=== PATIENT | male | born 1935 | race Caucasian/White ===

== ENCOUNTER → 2016-08-19 | Outpatient (CLI) | payer MEDICARE, OTHER ==
[~2016-08-19] MED LIST: ACCUPRIL40MGTAB PO; APRESOLINE 25MG25 MG PO; ASPIRIN 81M81 MG/TA2 PO; CATAPRES 0.1MG0.1 MG PO; COLACE 100100 MG/CAP PO; FOSAMAX 10M10 MG/TAB PO; GLUCOTROL5 MG PO; HCTZ12.5TAB PO; LEVOTHROID0.125 MG PO; NORCO 325 MG-51 TAB PO; NORVASC10 MG PO; PROSCAR 5MG5 MG PO; PYRIDIUM 100MG100 MG PO; TIROSINT88 MC1; ZOCOR 20MG20 MG PO
== END ==
LOC: COL.LAB 08:45
DX: Z53.9 Procedure and treatment not carried out, unspecified reason (principal)

== ENCOUNTER → 2016-08-22 | Outpatient (CLI) | payer MEDICARE, OTHER ==
[2016-08-22 18:51] LABS: URINE 24 HOUR CREATININE 1.4 gm/24 hr (1.0-2.0)
== END ==
LOC: COL.LAB 16:11
DX: E11.29 Type 2 diabetes mellitus with other diabetic kidney complication (principal); R80.8 Other proteinuria

== ENCOUNTER 2017-01-09 10:55 | Emergency (ER) | payer MEDICARE, OTHER ==
[~2017-01-09] VITALS: Ht 172.7 cm; Wt 95.5 kg
[~2017-01-09 10:55] MED LIST changes: -APRESOLINE 25MG25 MG PO
[2017-01-09 11:01] VITALS: TEMP 97.7
[2017-01-09] MEDS ORDERED: ZOCOR 20MG20 MG PO (11:55)
[2017-01-09] MEDS ORDERED: APRESOLINE 25MG25 MG PO (11:56)
[2017-01-09] MEDS ORDERED: NORCO 325 MG-51 TAB PO (12:14)
[2017-01-09 13:05] VITALS: BP 168/79; PULSE 64
[2017-01-09 13:19] LABS: PH 5 (5-8); SQUAMOUS EPITHELIAL 0-2 /hpf; URINE APPEARANCE Hazy; URINE BACTERIA None Seen /hpf; URINE BILIRUBIN Negative (NEGATIVE); URINE BLOOD Negative (NEGATIVE); URINE GLUCOSE Negative (NEGATIVE); URINE KETONE Negative (NEGATIVE); URINE RBC 0-2 /hpf; URINE UROBILINOGEN Negative (NEGATIVE); URINE WBC 0-2 /hpf
[2017-01-09 13:26] LABS: URINE COLOR Yellow
== END 2017-01-09 13:45 | disposition home or self-care (01) ==
LOC: COL.ER 10:55
PROVIDERS: Emergency Medicine
DX: S39.012A Strain of muscle, fascia and tendon of lower back, initial encounter (principal); S86.912A Strain of unspecified muscle(s) and tendon(s) at lower leg level, left leg, initial encounter; S20.212A Contusion of left front wall of thorax, initial encounter; S51.812A Laceration without foreign body of left forearm, initial encounter; Z23 Encounter for immunization; W01.0XXA Fall on same level from slipping, tripping and stumbling without subsequent striking against object, initial encounter; Y92.000 Kitchen of unspecified non-institutional (private) residence as the place of occurrence of the external cause; I10 Essential (primary) hypertension; E11.9 Type 2 diabetes mellitus without complications; Z79.84 Long term (current) use of oral hypoglycemic drugs
CPT/HCPCS: A9284

== ENCOUNTER → 2017-01-14 | Outpatient (CLI) | payer MEDICARE, OTHER ==
[~2017-01-14] MED LIST changes: +APRESOLINE 25MG25 MG PO
== END ==
LOC: COL.CARD 11:36
DX: I45.2 Bifascicular block (principal); I10 Essential (primary) hypertension

== ENCOUNTER → 2017-01-28 | Outpatient (CLI) | payer MEDICARE, OTHER | LOC: COL.VAS 07:46 | DX: I36.1 Nonrheumatic tricuspid (valve) insufficiency (principal); I10 Essential (primary) hypertension ==

== ENCOUNTER → 2017-03-26 | Outpatient (CLI) | payer MEDICARE, OTHER | LOC: COL.PUL 09:51 | DX: R06.09 Other forms of dyspnea (principal); Z87.891 Personal history of nicotine dependence ==

== ENCOUNTER 2017-07-21 00:52 | Emergency (ER) | payer MEDICARE, OTHER ==
[~2017-07-21] VITALS: Ht 172.7 cm; Wt 97.7 kg
[2017-07-21 00:58] VITALS: TEMP 97.8
[2017-07-21] MEDS ORDERED: CEPHALEXIN500 M1 PO (02:22)
[2017-07-21 02:53] VITALS: BP 173/68; PULSE 65
== END 2017-07-21 02:53 | disposition home or self-care (01) ==
LOC: COL.ER 00:52
DX: S61.412A Laceration without foreign body of left hand, initial encounter (principal); S80.212A Abrasion, left knee, initial encounter; S90.412A Abrasion, left great toe, initial encounter; E11.9 Type 2 diabetes mellitus without complications; Z79.84 Long term (current) use of oral hypoglycemic drugs; Z79.82 Long term (current) use of aspirin; W18.39XA Other fall on same level, initial encounter; Y92.009 Unspecified place in unspecified non-institutional (private) residence as the place of occurrence of the external cause

== ENCOUNTER → 2017-12-14 | Outpatient (CLI) | payer MEDICARE, OTHER ==
[~2017-12-14] MED LIST changes: +CEPHALEXIN500 M1 PO
== END ==
LOC: COL.RAD 07:30
DX: H90.41 Sensorineural hearing loss, unilateral, right ear, with unrestricted hearing on the contralateral side (principal)

== ENCOUNTER → 2018-02-11 | Outpatient (CLI) | payer MEDICARE, OTHER ==
[~2018-02-11] MED LIST changes: +ADVAIR 250-50 DISKUS IH; +RT SPIRIVA18 MCG IH; +SYNTHROID0.1 MG/TAB PO
== END ==
LOC: COL.VAS 09:28
DX: I65.23 Occlusion and stenosis of bilateral carotid arteries (principal)

== ENCOUNTER 2018-02-17 05:11 | Day surgery (SDC) | payer MEDICARE, OTHER ==
[~2018-02-17] VITALS: Ht 172.7 cm; Wt 98.6 kg
[~2018-02-17 05:11] MED LIST changes: -ADVAIR 250-50 DISKUS IH; -RT SPIRIVA18 MCG IH; -SYNTHROID0.1 MG/TAB PO
[2018-02-17 06:18] LABS: CALCIUM 9.2 mg/dL (8.4-10.2); CREATININE, serum 1.66 mg/dL (0.66-1.25); POTASSIUM 4.5 mmol/L (3.4-5.0)
[2018-02-17 06:20] VITALS: BP 146/56; PULSE 77; TEMP 97.8
[2018-02-17] MEDS ORDERED: RT SPIRIVA18 MCG IH (06:30)
[2018-02-17] MEDS ORDERED: ADVAIR 250-50 DISKUS IH (06:30)
[2018-02-17] MEDS ORDERED: SYNTHROID0.1 MG/TAB PO (06:39)
[2018-02-17 08:54] VITALS: BP 150/57; PULSE 54
[2018-02-17] MEDS ORDERED: NORCO 325 MG-51 TAB PO (08:56)
[2018-02-17 09:09] VITALS: BP 156/50; PULSE 55
[2018-02-17 09:14] VITALS: BP 141/56; PULSE 53
[2018-02-17 09:29] VITALS: BP 171/47; PULSE 56
== END 2018-02-17 09:40 | disposition home or self-care (01) ==
LOC: SDCO 05:11
PROVIDERS: Nurse Anesthetist, Certified Registered
DX: G93.81 Temporal sclerosis (principal); H53.131 Sudden visual loss, right eye; I10 Essential (primary) hypertension; D64.9 Anemia, unspecified; J44.9 Chronic obstructive pulmonary disease, unspecified; M19.90 Unspecified osteoarthritis, unspecified site; E11.40 Type 2 diabetes mellitus with diabetic neuropathy, unspecified; I45.10 Unspecified right bundle-branch block; Z79.84 Long term (current) use of oral hypoglycemic drugs; Z79.82 Long term (current) use of aspirin; Z85.850 Personal history of malignant neoplasm of thyroid; Z87.891 Personal history of nicotine dependence; Z82.49 Family history of ischemic heart disease and other diseases of the circulatory system; Z83.3 Family history of diabetes mellitus
CPT/HCPCS: J0690; J2250; J2405; J2704; J3010; J7030

== ENCOUNTER → 2018-03-15 | Outpatient (CLI) | payer MEDICARE, OTHER ==
[~2018-03-15] MED LIST changes: +ADVAIR 250-50 DISKUS IH; +RT SPIRIVA18 MCG IH; +SYNTHROID0.1 MG/TAB PO
== END ==
LOC: COL.RAD 10:42
DX: J44.9 Chronic obstructive pulmonary disease, unspecified (principal); I51.7 Cardiomegaly; R63.5 Abnormal weight gain

== ENCOUNTER 2018-10-07 15:28 | Inpatient (IN) | payer MEDICARE, OTHER ==
[~2018-10-07] VITALS: Ht 172.7 cm; Wt 101.6 kg
[2018-10-07 16:44] LABS: BASO % 0.4 % (0.0-2.0); EOS # 0.3 (0.0-0.7); GRAN # 3.4 (1.4-6.5); GRAN % 65.5 % (42.2-75.2); LYMPH # 0.8 (1.2-3.4); LYMPH % 16.1 % (20.0-51.0); MEAN CELL VOLUME 101 fl (80.0-100.0); MEAN CORPUSCULAR HGB CONC 33 g/dl (33.0-37.0); MEAN PLATELET VOLUME 9.6 fl (7.4-10.4); MONO # 0.7 (0.1-0.6); MONO % 12.8 % (1.7-9.3); PLATELET COUNT 211 K/mm3 (130-400); REDCELL DISTRIBUTION WIDTH-CV 13.2 % (11.5-14.5)
[2018-10-07 16:49] LABS: HEMATOCRIT 29.4 % (42.0-52.0); HEMOGLOBIN 9.6 g/dl (13.5-18.0); MEAN CORPUSCULAR HEMOGLOBIN 33 pg (27.0-31.0)
[2018-10-07 16:56] LABS: ALANINE AMINOTRANSFERASE 12 U/L (21-72); ALBUMIN 3.5 gm/dL (3.5-5.0); ALKALINE PHOSPHATASE 52 U/L (50-136); ANION GAP 6 mmol/L (7-16); AST,SGOT 22 U/L (15-37); BILIRUBIN,TOTAL 0.3 mg/dL (0.0-1.0); BLOOD UREA NITROGEN 31 mg/dL (9-20); C-REACTIVE PROTEIN < 0.5 mg/dL (0.0-0.9); CALCIUM 8.7 mg/dL (8.4-10.2); CARBON DIOXIDE 24 mmol/L (22-30); CHLORIDE 108 mmol/L (98-107); CREATININE, serum 1.54 (0.66-1.25); GLUCOSE 180 mg/dL (74-106); POTASSIUM 5.3 mmol/L (3.4-5.0); SODIUM 138 mmol/L (137-145); TOTAL PROTEIN 6.6 gm/dL (6.4-8.2)
[2018-10-07 17:10] LABS: TROPONIN-I < 0.012 ng/mL (0.000-0.035)
[2018-10-07 17:30] VITALS: BP 169/56; PULSE 54
[2018-10-07] MEDS ORDERED: CATAPRES0.2 MG PO (18:44)
[2018-10-07] MEDS ORDERED: GLUCOTROL XL5 MG/TAB PO (18:46)
[2018-10-07] MEDS ORDERED: VOLTAREN GEL 1%1 TU TP (18:58)
[2018-10-07] MEDS ORDERED: VITAMIN D31000 I1 PO (18:58)
[2018-10-07] MEDS ORDERED: APRESOLINE 25MG25 MG PO (18:59)
[2018-10-07] MEDS ORDERED: ACCUPRIL40MGTAB PO (18:59)
[2018-10-07] MEDS ORDERED: LEVOXYL0.125 MG PO (18:59)
[2018-10-07] MEDS ORDERED: HCTZ 25MG TAB25 MG PO (18:59)
[2018-10-07] MEDS ORDERED: ASPIRIN 81M81 MG/TA2 PO (19:00)
[2018-10-07] MEDS ORDERED: ZOCOR 20MG20 MG (19:00)
[2018-10-07] MEDS ORDERED: OMEGA-3 1000 MG1 CAP PO (19:00)
[2018-10-07] MEDS ORDERED: MULTIPLE VITAMI1 CAP PO (19:01)
--- NOTE | 2018-10-07 19:42 | NUR ---
Pt to floor from ER via stretcher. No distress noted. Pt denies pain or nausea. Pt has no current reports of dizziness. Lungs clear to auscultation. BS+. Neuro check WNL. No needs noted. Will continue to monitor
[2018-10-07 19:47] VITALS: BP 158/42; PULSE 60; TEMP 97.5
--- NOTE | 2018-10-07 22:11 | NUR ---
Pt ambulated to bathroom with walker, gait belt and 1 assist. Well tolerated. Voiding clear, yellow urine. Pt denies dizziness.
[2018-10-08] VITALS (14 sets, daily range): BP systolic 129–188; BP diastolic 22–54; PULSE 45–99; TEMP 97.5–98.3
--- NOTE | 2018-10-08 00:45 | NUR ---
Orthostatic blood pressures meausred WNL. Maribel THAKKAR contacted. Pts home Blood pressure medications administered.
[2018-10-08 02:10] LABS: BASO % 0.5 % (0.0-2.0); EOS # 0.2 (0.0-0.7); EOS % 5.4 % (0-4.0); GRAN # 2.7 (1.4-6.5); GRAN % 61.5 % (42.2-75.2); LYMPH # 0.8 (1.2-3.4); MEAN CELL VOLUME 101 fl (80.0-100.0); MEAN CORPUSCULAR HGB CONC 33 g/dl (33.0-37.0); MONO # 0.6 (0.1-0.6); MONO % 13.4 % (1.7-9.3); PLATELET COUNT 182 K/mm3 (130-400); RED BLOOD COUNT 2.66 M/mm3 (4.20-5.60); REDCELL DISTRIBUTION WIDTH-CV 13.2 % (11.5-14.5)
[2018-10-08 02:13] LABS: HEMATOCRIT 26.9 % (42.0-52.0); HEMOGLOBIN 8.9 g/dl (13.5-18.0); MEAN CORPUSCULAR HEMOGLOBIN 33 pg (27.0-31.0)
[2018-10-08 02:19] LABS: ANION GAP 4 mmol/L (7-16); BLOOD UREA NITROGEN 25 mg/dL (9-20); CALCIUM 8.7 mg/dL (8.4-10.2); CARBON DIOXIDE 24 mmol/L (22-30); CHLORIDE 110 mmol/L (98-107); CREATININE, serum 1.35 (0.66-1.25); GLUCOSE 96 mg/dL (74-106); MAGNESIUM 2.1 mg/dL (1.6-2.3); POTASSIUM 4.6 mmol/L (3.4-5.0); SODIUM 138 mmol/L (137-145)
[2018-10-08 02:32] LABS: TROPONIN-I < 0.012 ng/mL (0.000-0.035)
--- NOTE | 2018-10-08 06:42 | NUR ---
Pt resting this Am. Up to the bathroom x4 last night. No distress noted. VSS. Pt denies any episodes of dizziness throughout the night.
--- NOTE | 2018-10-08 10:45 | NUR ---
Pt alert and oriented. Pt has IV patent and no infiltration noted. Pt denies pain. Pt dizzy with position changes. Orthosatics ordered. Pt am assessment completed and denies needs.
--- NOTE | 2018-10-08 11:51 | NUR ---
Visited, provided spiritual care, and prayed with the patient.
--- NOTE | 2018-10-08 19:22 | NUR ---
Pt alert and oriented. Pt does not have glasses or battery for his ear implant. Pt denies pain. Pt has been bradycardic this afternoon. Cardiology consulted and pacemaker planned for Wednesday. Pt denies symptoms at rest but unsteady gait and dizzy with ambulation. Pt has call light in reach and fall precautions in place.
[2018-10-09 01:03] VITALS: BP 138/33; PULSE 61; TEMP 97.9
--- NOTE | 2018-10-09 05:17 | NUR ---
PT WAS WOBBLY WITH STANDING AND AMBULATING TO BATHROOM THIS SHIFT. STEADY ON FEET AFTER STANDING AND TAKING A FEW STEPS. IV FLUIDS INFUSING WITHOUT ISSUE. NEUROS UNREMARKABLE. PT HAS NOTED COUGHING AND A LOT OF SOA WITH EXERTION. THIS NURSE CALLED NICCI THAKKAR AND OBTIANED ORDER FOR YVAN WYLIE PRN. ADMISNITERED MED. AMOUNT OF COUGHING DECRESED AFTERWARDS. NO C/O PAIN. HOB ELEVATED ABOUT 75 DEGREES. REMAINS ON RA, SATS GOT DOWN TO 92% WHEN IN A DEEP SLEEP THIS NOC OTHERWISE REMAINED IN UPPER 90'S. PT STATED HE WAS "REALLY WHEEZEY" NO NOTED WHEEZES HEARD ON ASSULTATION, PT WAS HAVING INCREASED WORK OF AIR AT THAT TIME.
[2018-10-09 06:07] VITALS: BP 142/33; PULSE 65; TEMP 98.2
[2018-10-09 09:58] LABS: CALCIUM 8.5 mg/dL (8.4-10.2); CREATININE, serum 1.98 (0.66-1.25); POTASSIUM 4.7 mmol/L (3.4-5.0)
[2018-10-09 10:02] LABS: BASO % 0.3 % (0.0-2.0); EOS # 0.3 (0.0-0.7); GRAN # 4.3 (1.4-6.5); GRAN % 68.5 % (42.2-75.2); LYMPH % 15.9 % (20.0-51.0); MEAN CELL VOLUME 102 fl (80.0-100.0); MEAN CORPUSCULAR HGB CONC 33 g/dl (33.0-37.0); MONO # 0.7 (0.1-0.6); MONO % 11.1 % (1.7-9.3); PLATELET COUNT 185 K/mm3 (130-400); RED BLOOD COUNT 2.49 M/mm3 (4.20-5.60); REDCELL DISTRIBUTION WIDTH-CV 13.4 % (11.5-14.5)
[2018-10-09 10:04] LABS: HEMATOCRIT 25.4 % (42.0-52.0); HEMOGLOBIN 8.3 g/dl (13.5-18.0); MEAN CORPUSCULAR HEMOGLOBIN 33 pg (27.0-31.0)
[2018-10-09 11:31] VITALS: BP 152/62; PULSE 53; TEMP 97.7
--- NOTE | 2018-10-09 11:36 | NUR ---
Pt stable this am. Pt alert and oriented. Pt denies SOB or pain. Pt ate 100% breakfast. Pt denies dizziness at rest but when rises he becomes dizzy. Pt only up with assistance. Pt on fall precautions. Pt has call light in reach and remains on telemetry. HR running in the 50-60's this am.
--- NOTE | 2018-10-09 12:34 | NUR ---
ALTAGRACIA met with the patient to discuss a discharge plan. The patient lives in [facility]. The patient has a cane and reports he uses it daily. The patient reports independence with ADLs. The patient receives medical care from the [facility]. The patient receives his medications via mail from the [facility] and he reports he also utilizes [facility], if needed. The patient does have advanced directives in the EMR. The patient plans to return home upon discharge. The patient reports his friend Mirela Zelaya may be able to take him home. If not, he will need assistance with transporation home. ALTAGRACIA will continue to follow. Mirela Burrell home
[2018-10-09 16:48] VITALS: BP 155/67; PULSE 57; TEMP 97.6
[2018-10-09 19:23] VITALS: BP 139/42; PULSE 65; TEMP 97.7
--- NOTE | 2018-10-09 19:28 | NUR ---
Pt stable this afternoon. Pt alert and oriented. Pt rates pain 2/10 in knees. Pt denies need for pain med. Pt repositioning for comfort. Pt ate 100%. Pt denies dizziness at rest. Pt has SOB and slight dizziness with ambulation with walker. Fall precautions in place. Pt consent obtain for pacemaker placement tomorrow. Pt NPO after midnight. Pt has call light in reach.
--- NOTE | 2018-10-09 19:45 | NUR ---
Shift assessment complete. Pt resting in bed, awake, a&o, cooperative c cares. Pt denies pain or any other c/o. INT patent. Tele in place. Pt denies needs. Reviewed plan for pacemaker in am including NPO at [place]. Call light in reach, will monitor.
[2018-10-09 23:35] VITALS: BP 151/39; PULSE 79; TEMP 97.6
[2018-10-10] VITALS (14 sets, daily range): BP systolic 120–186; BP diastolic 39–62; PULSE 59–77; TEMP 97.2–98.4
[2018-10-10 00:07] LABS: COLLECTION METHOD CLEAN CATCH
[2018-10-10 00:12] LABS: PH 6 (5-8); SQUAMOUS EPITHELIAL 0-2 /hpf; URINE APPEARANCE Clear; URINE BACTERIA None Seen /hpf; URINE BILIRUBIN Negative (NEGATIVE); URINE BLOOD Negative (NEGATIVE); URINE COLOR Yellow; URINE GLUCOSE Negative (NEGATIVE); URINE KETONE Negative (NEGATIVE); URINE LEUKOCYTE ESTERASE Negative (NEGATIVE); URINE NITRATE Negative (NEGATIVE); URINE PROTEIN(semi-quant) Negative (NEGATIVE); URINE RBC 0-2 /hpf; URINE UROBILINOGEN Negative (NEGATIVE)
[2018-10-10 07:38] LABS: BASO % 0.3 % (0.0-2.0); EOS # 0.4 (0.0-0.7); EOS % 5.1 % (0-4.0); GRAN # 5.3 (1.4-6.5); GRAN % 69.3 % (42.2-75.2); LYMPH # 1.2 (1.2-3.4); LYMPH % 15.5 % (20.0-51.0); MEAN CELL VOLUME 101 fl (80.0-100.0); MEAN CORPUSCULAR HGB CONC 33 g/dl (33.0-37.0); MEAN PLATELET VOLUME 9.8 fl (7.4-10.4); MONO # 0.7 (0.1-0.6); MONO % 9.5 % (1.7-9.3); PLATELET COUNT 221 K/mm3 (130-400); RED BLOOD COUNT 2.83 M/mm3 (4.20-5.60); REDCELL DISTRIBUTION WIDTH-CV 13.2 % (11.5-14.5)
[2018-10-10 07:39] LABS: HEMATOCRIT 28.5 % (42.0-52.0); HEMOGLOBIN 9.3 g/dl (13.5-18.0); MEAN CORPUSCULAR HEMOGLOBIN 33 pg (27.0-31.0)
[2018-10-10 07:48] LABS: CALCIUM 9.4 mg/dL (8.4-10.2); CREATININE, serum 1.65 (0.66-1.25); POTASSIUM 4.5 mmol/L (3.4-5.0)
--- NOTE | 2018-10-10 08:50 | NUR ---
ALL MEDICATIONS GIVEN WITH VERBAL ORDER AND READBACK WITH MD. SEE MERGE FOR ALL MEDICATION ADMIN TIMES. SEE MERGE FOR ALL RASS ASSESSMENTS DURING AND POST PROCEDURE.
--- NOTE | 2018-10-10 09:49 | NUR ---
Patient returned from supervisor laboratory after receiving pacemaker to left chest. Dressing is covered with sterile gauze and paper tape. There is swelling noted to site. Ice pack placed to site. Denies having any pain at this time. Rests quietly in bed with eyes closed.
--- NOTE | 2018-10-10 11:02 | NUR ---
Patient up to restroom at this time, up with minimal assistance. Reminders given to not use left arm. Patient understood. Requested to sit on toilet and stated he would pull the call light when he was finished. Did assist in ordering breakfast for patient.
--- NOTE | 2018-10-10 11:33 | NUR ---
Patient assisted up to restroom with 2 assist per his request. He stated he was nervous about getting up for the first time. Tolerated very well. Breakfast was ordered and given to patient. He was able to eat 100% and drank 240 mL. No other needs are verbalized. Call light is within reach.
--- NOTE | 2018-10-10 18:56 | NUR ---
Patient is sitting up in recliner eating supper. PRN apap administered, patient stated incision site for pacemaker felt more stiff than sore. Ice removed while patient is in the chair. Report given. No other needs identified. Call light is within reach.
--- NOTE | 2018-10-10 20:50 | NUR ---
Shift assessment complete. Pt resting in bed, awake, a&o, cooperative c cares. Pt reports "a bit" of pain to L upper chest pacemaker site, denies need for intervention at this time. Denies any other c/o. Pacemaker site noted to L upper chest, s edema/drainage/ecchymosis; gauze et paper tape dressing C/D/I. Sling to LUE in place. Tele in place. INT patent. Pt denies further needs. Call light in reach, will monitor.
[2018-10-11 01:28] VITALS: BP 173/42; PULSE 59; TEMP 98.2
[2018-10-11 06:50] LABS: BASO % 0.5 % (0.0-2.0); EOS # 0.4 (0.0-0.7); EOS % 6.2 % (0-4.0); GRAN # 4.4 (1.4-6.5); LYMPH # 0.7 (1.2-3.4); LYMPH % 11.7 % (20.0-51.0); MEAN CELL VOLUME 100 fl (80.0-100.0); MEAN CORPUSCULAR HGB CONC 33 g/dl (33.0-37.0); MEAN PLATELET VOLUME 10.6 fl (7.4-10.4); MONO # 0.7 (0.1-0.6); MONO % 11.4 % (1.7-9.3); PLATELET COUNT 210 K/mm3 (130-400)
[2018-10-11 06:53] LABS: MEAN CORPUSCULAR HEMOGLOBIN 33 pg (27.0-31.0)
[2018-10-11 07:17] LABS: CALCIUM 9.1 mg/dL (8.4-10.2); CREATININE, serum 1.64 (0.66-1.25); POTASSIUM 4.2 mmol/L (3.4-5.0)
--- NOTE | 2018-10-11 07:40 | NUR ---
assesment completed. Pt alert and awake telemetry on. L chest wall steri-strips to the pacemaker site CDI, open to air. L arm in sling with INT in L forearm, no signs of redness noted, denies complaints of pain.
--- NOTE | 2018-10-11 07:46 | NUR ---
Sitting up in the chair. Student, Jose C LOPES assisting with medications and cares this morning. Requesting to order breakfast now. No pain or neeeds reported. The call light is in place.
[2018-10-11 08:01] VITALS: BP 182/46; PULSE 60; TEMP 98.7
--- NOTE | 2018-10-11 10:30 | NUR ---
assisted with hygiene, ambulation to the bathroom, and performed bedchange.
[2018-10-11] MEDS ORDERED: AMOXICILLIN 8751 TAB PO (10:53)
[2018-10-11] MEDS ORDERED: COREG 25MG25 MG/TAB PO (10:53)
[2018-10-11] MEDS ORDERED: APRESOLINE50 MG PO (11:03)
[2018-10-11 11:21] VITALS: BP 152/45; PULSE 59; TEMP 97.9
--- NOTE | 2018-10-11 11:24 | NUR ---
ALTAGRACIA informed that patient will need post acute rehab. inquired if patient would be open to SNF. Patient is agreeable. ALTAGRACIA provided medicare.gov fdc resouce list. Justin chose [facility]. [facility]. [facility]. ALTAGRACIA faxed referrals to both facilities.
[2018-10-11 13:21] VITALS: BP 152/45; PULSE 59; TEMP 97.9
--- NOTE | 2018-10-11 13:42 | NUR ---
SW met with patient about [facility] acceptance. Patient will discharge today to [facility] for chcf, PT and OT. ALTAGRACIA presented IM to patient. He signed but did not request a copy. ALTAGRACIA faxed discharge orders to [facility] and arranged transportation between 3 and 3:30pm.
--- NOTE | 2018-10-11 16:32 | NUR ---
Report called to NAINA Groves to resume care. All questions answered per this nurse. Phone number left for follow up questions.
== END 2018-10-11 16:51 | DRG 243 ==
LOC: COL.ER 15:28 → MEDICAL 18:09
PROVIDERS: Emergency Medicine; Nurse Practitioner Family; ADMIT Hospitalist
PROC: 0JH606Z Insertion of Pacemaker, Dual Chamber into Chest Subcutaneous Tissue and Fascia, Open Approach (ICD-10-PCS; principal; 2018-10-10)
PROC: 02HK3JZ Insertion of Pacemaker Lead into Right Ventricle, Percutaneous Approach (ICD-10-PCS; 2018-10-10)
PROC: 02H63JZ Insertion of Pacemaker Lead into Right Atrium, Percutaneous Approach (ICD-10-PCS; 2018-10-10)
DX: R00.1 Bradycardia, unspecified (principal); N17.9 Acute kidney failure, unspecified; E78.5 Hyperlipidemia, unspecified; I12.9 Hypertensive chronic kidney disease with stage 1 through stage 4 chronic kidney disease, or unspecified chronic kidney disease; N18.9 Chronic kidney disease, unspecified; E11.319 Type 2 diabetes mellitus with unspecified diabetic retinopathy without macular edema; E11.22 Type 2 diabetes mellitus with diabetic chronic kidney disease; E03.9 Hypothyroidism, unspecified; Z87.891 Personal history of nicotine dependence; J01.00 Acute maxillary sinusitis, unspecified; E87.5 Hyperkalemia; D64.9 Anemia, unspecified
CPT/HCPCS: 99222-AI; 99232-AI; 99233-AI; 99239; C1785; C1894; C1898; G0378; G8978-GP; G8979-GP; J0690; J1644; J1815; J2060; J2250; J2405; J3010; J7030

== ENCOUNTER 2018-10-15 01:31 | Observation (INO) | payer MEDICARE, OTHER ==
[~2018-10-15] VITALS: Ht 165.1 cm; Wt 104.6 kg
[~2018-10-15 01:31] MED LIST changes: +AMOXICILLIN 8751 TAB PO; +APRESOLINE50 MG PO; +CATAPRES0.2 MG PO; +COREG 25MG25 MG/TAB PO; +GLUCOTROL XL5 MG/TAB PO; +HCTZ 25MG TAB25 MG PO; +LEVOXYL0.125 MG PO; +MULTIPLE VITAMI1 CAP PO; +OMEGA-3 1000 MG1 CAP PO; +VITAMIN D31000 I1 PO; +VOLTAREN GEL 1%1 TU TP; +ZOCOR 20MG20 MG
[2018-10-15 02:02] LABS: BASO % 0.4 % (0.0-2.0); EOS # 0.3 (0.0-0.7); GRAN # 5.5 (1.4-6.5); GRAN % 71.3 % (42.2-75.2); LYMPH % 13.1 % (20.0-51.0); MEAN CELL VOLUME 99 fl (80.0-100.0); MEAN CORPUSCULAR HGB CONC 33 g/dl (33.0-37.0); MEAN PLATELET VOLUME 9.9 fl (7.4-10.4); MONO # 0.8 (0.1-0.6); MONO % 10.8 % (1.7-9.3); PLATELET COUNT 217 K/mm3 (130-400); RED BLOOD COUNT 2.97 M/mm3 (4.20-5.60); REDCELL DISTRIBUTION WIDTH-CV 13.3 % (11.5-14.5)
[2018-10-15 02:13] LABS: ALANINE AMINOTRANSFERASE 18 U/L (21-72); ALBUMIN 3.3 gm/dL (3.5-5.0); ALKALINE PHOSPHATASE 59 U/L (50-136); ANION GAP 7 mmol/L (7-16); AST,SGOT 30 U/L (15-37); BILIRUBIN,TOTAL 0.3 mg/dL (0.0-1.0); BLOOD UREA NITROGEN 50 mg/dL (9-20); CARBON DIOXIDE 22 mmol/L (22-30); CHLORIDE 108 mmol/L (98-107); GLUCOSE 128 mg/dL (74-106); LIPASE 81 U/L (23-300); POTASSIUM 4.7 mmol/L (3.4-5.0); SODIUM 137 mmol/L (137-145); TOTAL PROTEIN 6.5 gm/dL (6.4-8.2)
[2018-10-15 02:15] LABS: HEMATOCRIT 29.4 % (42.0-52.0); HEMOGLOBIN 9.7 g/dl (13.5-18.0); MEAN CORPUSCULAR HEMOGLOBIN 33 pg (27.0-31.0)
[2018-10-15 02:17] LABS: INR 0.9 (0.8-3.0); PROTHROMBIN TIME 10.6 SECONDS (9.7-12.8)
[2018-10-15 02:19] LABS: PARTIAL THROMBOPLASTIN TIME 32.3 SECONDS (26.0-37.0)
[2018-10-15 02:25] LABS: TROPONIN-I < 0.012 ng/mL (0.000-0.035)
--- NOTE | 2018-10-15 04:20 | NUR ---
PT HAD BLADDER SCAN COMPLETED WITH 800ML RETAINED. PLACED A 16 ARABIC CATHETER, USED LIDOCAINE FOR PAIN. GET 600 RETURN OF DARK YELLOW URINE, CLEAR.
[2018-10-15 07:04] VITALS: BP 165/78; PULSE 61; TEMP 97.3
--- NOTE | 2018-10-15 07:19 | NUR ---
Report given to NAINA Marinelli; No significant changes or concerns at time of shift change. CDA
[2018-10-15 10:55] VITALS: BP 154/44; PULSE 59; TEMP 97.7
[2018-10-15 10:59] VITALS: BP 158/68; PULSE 59; TEMP 98.6
--- NOTE | 2018-10-15 14:00 | NUR ---
Pt urinated 250ml, completed a bladder scan per Dr. Oviedo, 596ml retained. Will continue to monitor.
[2018-10-15 14:03] LABS: COLLECTION METHOD CLEAN CATCH
[2018-10-15 14:09] LABS: PH 5 (5-8); SQUAMOUS EPITHELIAL None Seen /hpf; URINE APPEARANCE Hazy; URINE BACTERIA None Seen /hpf; URINE BILIRUBIN Negative (NEGATIVE); URINE BLOOD Negative (NEGATIVE); URINE COLOR Yellow; URINE GLUCOSE Negative (NEGATIVE); URINE KETONE Negative (NEGATIVE); URINE LEUKOCYTE ESTERASE Negative (NEGATIVE); URINE NITRATE Negative (NEGATIVE); URINE PROTEIN(semi-quant) 2+ (NEGATIVE); URINE RBC 0-2 /hpf; URINE UROBILINOGEN Negative (NEGATIVE)
[2018-10-15 15:09] VITALS: BP 176/40; PULSE 64; TEMP 97.6
--- NOTE | 2018-10-15 19:01 | NUR ---
HAND OFF REPORT GIVEN TO MEEK CHEW. PT SITTING UP IN BED, ALERT AND ORIENTED. DENIES ANY NEEDS AT THIS TIME.
--- NOTE | 2018-10-15 19:52 | NUR ---
Pt resting in bed watching TV and napping, no C/O pain at this time, shift assessments complete, left Pt call light in reach, bed in lowest position.
[2018-10-15 20:30] VITALS: BP 136/40; PULSE 60; TEMP 98
[2018-10-16 00:14] VITALS: BP 161/48; PULSE 60; TEMP 98.4
[2018-10-16 04:17] VITALS: BP 164/46; PULSE 61; TEMP 98.3
--- NOTE | 2018-10-16 05:21 | NUR ---
Pt slept well during the night, no C/O pain. Talked with Pt and he was well oriented to time, place, and year, answers were appropriate to the conversation. VS have remained stable during the night.
[2018-10-16 08:04] VITALS: BP 171/40; PULSE 62; TEMP 98.4
[2018-10-16 08:40] LABS: BASO % 0.2 % (0.0-2.0); EOS # 0.2 (0.0-0.7); EOS % 2.1 % (0-4.0); GRAN # 8.3 (1.4-6.5); LYMPH # 1.4 (1.2-3.4); LYMPH % 12.7 % (20.0-51.0); MEAN CELL VOLUME 100 fl (80.0-100.0); MEAN CORPUSCULAR HGB CONC 32 g/dl (33.0-37.0); MEAN PLATELET VOLUME 10.9 fl (7.4-10.4); MONO # 1.1 (0.1-0.6); MONO % 9.6 % (1.7-9.3); PLATELET COUNT 234 K/mm3 (130-400); RED BLOOD COUNT 2.92 M/mm3 (4.20-5.60); REDCELL DISTRIBUTION WIDTH-CV 13.2 % (11.5-14.5)
[2018-10-16 08:43] LABS: HEMATOCRIT 29.2 % (42.0-52.0); HEMOGLOBIN 9.4 g/dl (13.5-18.0); MEAN CORPUSCULAR HEMOGLOBIN 32 pg (27.0-31.0)
[2018-10-16 08:52] LABS: CALCIUM 8.9 mg/dL (8.4-10.2); CREATININE, serum 1.65 (0.66-1.25); POTASSIUM 4.2 mmol/L (3.4-5.0)
--- NOTE | 2018-10-16 09:47 | NUR ---
Assessment complete.patient awake,a/o to self and place.pt is a little confused but pleasant.denies pain or discomfort at this time.LSCTA.breathing even and unlabored.pacemaker to left chest.edges well approximated,CDI,steri strips intact-sling in place.patient sitting up in recliner,courtney in place and draining adequately.patient denies any other needs at this time.
[2018-10-16] MEDS ORDERED: FLOMAX 0.40.4 MG/CAP PO (10:48)
--- NOTE | 2018-10-16 11:33 | NUR ---
Maryam met with HP and establish patient is able to return to [facility]. Patient is a SNF patient with DPOA Snow at . SW attempted to phone DPOA to let her know that patient is ready to DC. NOtified Herb at [facility] and setup transportation for 12:30 pm. SW notified nurse of transport and confirmed. No additional need, has a wheelchair, MARYAM could not complete full assessment due to patient unable to verbalize with accurracy and DPOA did not answer the phone. Patient is scheduled to transfer back to [facility].
[2018-10-16 12:13] VITALS: BP 171/40; PULSE 62; TEMP 98.4
--- NOTE | 2018-10-16 12:58 | NUR ---
PT DISCHARGED TO SNF AT [facility].ALL PAPERWORK AND BELONGINGS GIVEN TO [facility].CALL PLACED TO Pepe WATSON,WHO IS PT'S NEXT OF KIN.UPDATED ON PATIENT STATUS.IV AND TELE DISCONTINUED.PT DISCHARGED WITH MUNOZ IN PLACE-ORDERS TO FOLLOW UP WITH UROLOGY.REPORT CALLED TO [facility].
== END 2018-10-16 15:09 ==
LOC: COL.ER 01:31 → MEDICAL 05:28
PROVIDERS: Emergency Medicine; Hospitalist; ADMIT Internal Medicine
DX: R41.82 Altered mental status, unspecified (principal); E11.319 Type 2 diabetes mellitus with unspecified diabetic retinopathy without macular edema; E11.22 Type 2 diabetes mellitus with diabetic chronic kidney disease; I13.10 Hypertensive heart and chronic kidney disease without heart failure, with stage 1 through stage 4 chronic kidney disease, or unspecified chronic kidney disease; N18.9 Chronic kidney disease, unspecified; Z79.84 Long term (current) use of oral hypoglycemic drugs; R00.1 Bradycardia, unspecified; Z95.0 Presence of cardiac pacemaker; R33.9 Retention of urine, unspecified; J32.0 Chronic maxillary sinusitis; Z79.82 Long term (current) use of aspirin; E03.9 Hypothyroidism, unspecified; E78.5 Hyperlipidemia, unspecified; D64.9 Anemia, unspecified; Z79.899 Other long term (current) drug therapy; Z87.891 Personal history of nicotine dependence; R53.81 Other malaise; Z96.21 Cochlear implant status; H91.93 Unspecified hearing loss, bilateral
CPT/HCPCS: G0378; J7030

== ENCOUNTER → 2018-10-17 | Outpatient (REF) ==
[~2018-10-17] MED LIST changes: +FLOMAX 0.40.4 MG/CAP PO
[2018-10-17 10:18] LABS: BASO % 0.2 % (0.0-2.0); EOS # 0.3 (0.0-0.7); EOS % 3.7 % (0-4.0); GRAN # 6.8 (1.4-6.5); GRAN % 73.4 % (42.2-75.2); LYMPH % 11.2 % (20.0-51.0); MEAN CELL VOLUME 99 fl (80.0-100.0); MEAN CORPUSCULAR HGB CONC 33 g/dl (33.0-37.0); MEAN PLATELET VOLUME 10.5 fl (7.4-10.4); MONO % 11.1 % (1.7-9.3); PLATELET COUNT 221 K/mm3 (130-400)
[2018-10-17 10:28] LABS: HEMATOCRIT 29.6 % (42.0-52.0); HEMOGLOBIN 9.7 g/dl (13.5-18.0); MEAN CORPUSCULAR HEMOGLOBIN 32 pg (27.0-31.0)
[2018-10-17 10:46] LABS: CALCIUM 9.2 mg/dL (8.4-10.2); CREATININE, serum 1.5 (0.66-1.25); POTASSIUM 4.6 mmol/L (3.4-5.0)
== END ==
LOC: ZLAB.STJ 10:06
PROVIDERS: Internal Medicine
DX: R79.89 Other specified abnormal findings of blood chemistry (principal); R68.89 Other general symptoms and signs

== ENCOUNTER → 2018-10-24 | Outpatient (REF) ==
[2018-10-24 09:33] LABS: CREATININE, serum 1.81 (0.66-1.25); POTASSIUM 4.7 mmol/L (3.4-5.0)
== END ==
LOC: ZLAB.STJ 09:13
PROVIDERS: Internal Medicine
DX: Z01.89 Encounter for other specified special examinations (principal)

== ENCOUNTER 2018-11-03 13:54 | Day surgery (SDC) | payer MEDICARE, OTHER ==
[~2018-11-03] VITALS: Ht 172.7 cm; Wt 103.7 kg
[2018-11-03 14:54] VITALS: BP 187/63; PULSE 63; TEMP 97.5
[2018-11-03] MEDS ORDERED: K-TAB10 PO (15:19)
[2018-11-03] MEDS ORDERED: LASIX 20MG TABL20 MG PO (15:19)
--- NOTE | 2018-11-03 16:30 | NUR ---
PROCEDURE COMPLETE AND TOLERATED WELL. PATIENT SITTING ON SIDE OF BED AND HAS PENIS IN URINAL AND TRYING TO VOID. IF PATIENT CAN VOID HE CAN GO HOME. IF NOT TO HAVE NEW CATHETER PLACED. DR KOCH STATED TO HAVE PATIENT WAIT 30MIN TO SEE IF ANY RESULTS.
--- NOTE | 2018-11-03 17:00 | NUR ---
DR KOCH INTO TALK WITH PATIENT ORDER TO PLACE 16F TO MUNOZ BAG.
--- NOTE | 2018-11-03 17:20 | NUR ---
#16F MUNOZ CATHETER PLACED PER CLINICAL AUDIOLOGIST. MUNOZ TUBING PLACED INTO A STAT LOCK. URINE A CLEAR LIGHT YELLOW WITH IMMEDIATE RETURN. PATIENT TOLERATED WELL.
[2018-11-03] MEDS ORDERED: CIPRO 500MG TA500 MG PO (17:31)
--- NOTE | 2018-11-03 17:40 | NUR ---
ASSISTED DRESSED WITH FRIEND BREA AND NURSING STAFF. RECEIVED DISCHARGE INSTRUCTIONS- WILL BE RETURNING TO [facility]. DR OFFICE WILL CALL PATIENT WITH A FOLLOW UP APPOINTMENT.
--- NOTE | 2018-11-03 17:50 | NUR ---
[facility] CALLED AND ON THEIR WAY.
--- NOTE | 2018-11-03 17:59 | NUR ---
PATIENT TAKEN TO ER ENTRANCE TO BE PICKED UP ACCOMPANIED BY [place]- FRIEND/DPOA.
== END 2018-11-03 18:00 | disposition home or self-care (01) ==
LOC: SDCO 13:54
DX: R33.9 Retention of urine, unspecified (principal); Z90.79 Acquired absence of other genital organ(s); R41.82 Altered mental status, unspecified; E78.5 Hyperlipidemia, unspecified; I10 Essential (primary) hypertension; E89.0 Postprocedural hypothyroidism; E11.40 Type 2 diabetes mellitus with diabetic neuropathy, unspecified; E11.29 Type 2 diabetes mellitus with other diabetic kidney complication; N28.9 Disorder of kidney and ureter, unspecified; Z79.84 Long term (current) use of oral hypoglycemic drugs; D64.9 Anemia, unspecified; Z79.82 Long term (current) use of aspirin; Z79.899 Other long term (current) drug therapy; E11.21 Type 2 diabetes mellitus with diabetic nephropathy; Z95.0 Presence of cardiac pacemaker; M19.90 Unspecified osteoarthritis, unspecified site
CPT/HCPCS: A4314

== ENCOUNTER → 2018-11-07 | Outpatient (REF) ==
[~2018-11-07] MED LIST changes: +CIPRO 500MG TA500 MG PO; +K-TAB10 PO; +LASIX 20MG TABL20 MG PO
[2018-11-07 09:28] LABS: CALCIUM 8.8 mg/dL (8.4-10.2); CREATININE, serum 1.57 (0.66-1.25); POTASSIUM 4.4 mmol/L (3.4-5.0)
== END ==
LOC: ZLAB.STJ 09:14
PROVIDERS: Internal Medicine
DX: R79.89 Other specified abnormal findings of blood chemistry (principal)

== ENCOUNTER 2019-02-24 11:16 | Inpatient (IN) | payer MEDICARE, OTHER ==
[~2019-02-24] VITALS: Ht 172.7 cm; Wt 83.3 kg
[~2019-02-24 11:16] MED LIST changes: +ACCUPRIL10 M1 PO; +ELIQUIS 5MG PO; +NORVASC 10MG10 MG PO; -NORVASC10 MG PO; +PACERONE400 MG PO
[2019-02-24 12:01] LABS: BASO % 0.3 % (0.0-2.0); EOS # 0.1 (0.0-0.7); EOS % 1.5 % (0-4.0); GRAN % 77.7 % (42.2-75.2); HEMATOCRIT 26.5 % (42.0-52.0); HEMOGLOBIN 8.1 g/dl (13.5-18.0); LYMPH % 10.9 % (20.0-51.0); MEAN CELL VOLUME 93 fl (80.0-100.0); MEAN CORPUSCULAR HEMOGLOBIN 28 pg (27.0-31.0); MEAN CORPUSCULAR HGB CONC 31 g/dl (33.0-37.0); MEAN PLATELET VOLUME 9.5 fl (7.4-10.4); MONO # 0.8 (0.1-0.6); MONO % 9.3 % (1.7-9.3); PLATELET COUNT 317 K/mm3 (130-400); RED BLOOD COUNT 2.86 M/mm3 (4.20-5.60); REDCELL DISTRIBUTION WIDTH-CV 16.1 % (11.5-14.5)
[2019-02-24 12:03] LABS: INR 1.1 (0.8-3.0); PROTHROMBIN TIME 12.3 SECONDS (9.7-12.8)
[2019-02-24 12:07] LABS: ALANINE AMINOTRANSFERASE < 6 U/L (21-72); ALBUMIN 3.1 gm/dL (3.5-5.0); ALKALINE PHOSPHATASE 79 U/L (50-136); ANION GAP 13 mmol/L (7-16); AST,SGOT 23 U/L (15-37); BILIRUBIN,TOTAL 0.4 mg/dL (0.0-1.0); BLOOD UREA NITROGEN 35 mg/dL (9-20); CALCIUM 8.8 mg/dL (8.4-10.2); CARBON DIOXIDE 27 mmol/L (22-30); CHLORIDE 103 mmol/L (98-107); CREATININE, serum 1.64 (0.66-1.25); GLUCOSE 153 mg/dL (74-106); LIPASE 43 U/L (23-300); POTASSIUM 4.3 mmol/L (3.4-5.0); SODIUM 143 mmol/L (137-145); TOTAL PROTEIN 6.8 gm/dL (6.4-8.2)
[2019-02-24 12:18] LABS: TROPONIN-I < 0.012 ng/mL (0.000-0.035)
[2019-02-24] MEDS ORDERED: CORDARONE200 MG/TAB PO (15:09)
[2019-02-24] MEDS ORDERED: RT SPIRIVA18 MCG IH (15:15)
[2019-02-24] MEDS ORDERED: ALBUTEROL S0.4 MG/ML PO (15:17)
[2019-02-24] MEDS ORDERED: RT ADVAIR 128 DISKUS IH (15:18)
[2019-02-24] MEDS ORDERED: TESSALON P100 MG/CAP PO (16:26)
[2019-02-24 17:12] VITALS: BP 123/81; PULSE 60; TEMP 98.1
[2019-02-24 19:45] VITALS: BP 126/40; PULSE 68; TEMP 97.8
[2019-02-24 23:18] VITALS: BP 115/40; PULSE 64; TEMP 97.8
[2019-02-25 02:58] VITALS: BP 134/52; PULSE 62; TEMP 98.3
[2019-02-25 04:36] LABS: GRAN # 7.1 (1.4-6.5); GRAN % 88.3 % (42.2-75.2); LYMPH # 0.6 (1.2-3.4); LYMPH % 7.6 % (20.0-51.0); MEAN CELL VOLUME 92 fl (80.0-100.0); MEAN CORPUSCULAR HGB CONC 31 g/dl (33.0-37.0); MEAN PLATELET VOLUME 9.1 fl (7.4-10.4); MONO # 0.3 (0.1-0.6); MONO % 3.6 % (1.7-9.3); PLATELET COUNT 282 K/mm3 (130-400); RED BLOOD COUNT 2.54 M/mm3 (4.20-5.60)
[2019-02-25 04:38] LABS: HEMATOCRIT 23.4 % (42.0-52.0); HEMOGLOBIN 7.2 g/dl (13.5-18.0); MEAN CORPUSCULAR HEMOGLOBIN 28 pg (27.0-31.0)
[2019-02-25 04:46] LABS: CALCIUM 8.7 mg/dL (8.4-10.2); CREATININE, serum 1.77 (0.66-1.25); POTASSIUM 4.4 mmol/L (3.4-5.0)
[2019-02-25 08:30] VITALS: BP 111/50; PULSE 59; TEMP 97.8
[2019-02-25 13:28] VITALS: BP 119/41; PULSE 62; TEMP 97.8
[2019-02-25 17:00] VITALS: BP 126/52; PULSE 59; TEMP 97.6
[2019-02-25 19:27] VITALS: BP 133/49; PULSE 60; TEMP 97.6
[2019-02-25] MEDS ORDERED: TESSALON P100 MG/CAP (21:07)
[2019-02-25 23:59] VITALS: BP 121/43; PULSE 59; TEMP 97.8
[2019-02-26 03:06] VITALS: BP 134/54; PULSE 67; TEMP 97.8
[2019-02-26 07:17] LABS: BASO % 0.1 % (0.0-2.0); GRAN # 10.1 (1.4-6.5); GRAN % 84.9 % (42.2-75.2); HEMATOCRIT 25.5 % (42.0-52.0); LYMPH % 8.1 % (20.0-51.0); MEAN CELL VOLUME 92 fl (80.0-100.0); MEAN CORPUSCULAR HEMOGLOBIN 29 pg (27.0-31.0); MEAN CORPUSCULAR HGB CONC 31 g/dl (33.0-37.0); MEAN PLATELET VOLUME 10.1 fl (7.4-10.4); MONO # 0.8 (0.1-0.6); MONO % 6.4 % (1.7-9.3); PLATELET COUNT 362 K/mm3 (130-400); RED BLOOD COUNT 2.78 M/mm3 (4.20-5.60); REDCELL DISTRIBUTION WIDTH-CV 15.9 % (11.5-14.5); RETIC # 0.07 M/mm3 (0.02-0.16); RETIC % 2.7 % (0.5-3.52)
[2019-02-26 07:23] VITALS: BP 139/47; PULSE 59; TEMP 97.9
[2019-02-26 07:52] LABS: CALCIUM 9.3 mg/dL (8.4-10.2); CREATININE, serum 2.19 (0.66-1.25); MAGNESIUM 2.1 mg/dL (1.6-2.3); POTASSIUM 4.4 mmol/L (3.4-5.0)
[2019-02-26 13:02] VITALS: BP 136/51; PULSE 59; TEMP 97.5
[2019-02-26 15:48] VITALS: BP 144/61; PULSE 60; TEMP 97.6
[2019-02-26 20:34] VITALS: BP 134/46; PULSE 60; TEMP 97.6
[2019-02-26 23:41] VITALS: BP 108/35; BP 132/50; PULSE 59; TEMP 97.4
[2019-02-27 04:13] VITALS: BP 132/61; PULSE 68; TEMP 97.6
[2019-02-27 06:55] LABS: BASO % 0.1 % (0.0-2.0); GRAN # 7.5 (1.4-6.5); LYMPH # 0.8 (1.2-3.4); MEAN CELL VOLUME 90 fl (80.0-100.0); MEAN CORPUSCULAR HGB CONC 31 g/dl (33.0-37.0); MEAN PLATELET VOLUME 9.9 fl (7.4-10.4); MONO # 0.6 (0.1-0.6); PLATELET COUNT 377 K/mm3 (130-400); RED BLOOD COUNT 2.76 M/mm3 (4.20-5.60); REDCELL DISTRIBUTION WIDTH-CV 15.9 % (11.5-14.5)
[2019-02-27 06:56] LABS: HEMATOCRIT 24.9 % (42.0-52.0); HEMOGLOBIN 7.7 g/dl (13.5-18.0); MEAN CORPUSCULAR HEMOGLOBIN 28 pg (27.0-31.0)
[2019-02-27 07:07] LABS: CALCIUM 9.1 mg/dL (8.4-10.2); CREATININE, serum 2.05 (0.66-1.25); POTASSIUM 4.3 mmol/L (3.4-5.0)
[2019-02-27 08:31] VITALS: BP 134/50; PULSE 62; TEMP 97.7
[2019-02-27 12:14] VITALS: BP 122/74; PULSE 61; TEMP 97.6
[2019-02-27 16:55] VITALS: BP 145/53; PULSE 78; TEMP 97.8
[2019-02-27 20:45] VITALS: BP 131/53; PULSE 60; TEMP 97.5
[2019-02-28] VITALS: BP 136/60; PULSE 59; TEMP 97.4
[2019-02-28 04:17] VITALS: BP 148/57; PULSE 67; TEMP 97.5
[2019-02-28 08:22] LABS: MEAN CELL VOLUME 89 fl (80.0-100.0); MEAN CORPUSCULAR HGB CONC 32 g/dl (33.0-37.0); MEAN PLATELET VOLUME 9.3 fl (7.4-10.4); PLATELET COUNT 379 K/mm3 (130-400); REDCELL DISTRIBUTION WIDTH-CV 15.7 % (11.5-14.5)
[2019-02-28 08:30] LABS: CALCIUM 9.5 mg/dL (8.4-10.2); CREATININE, serum 2.05 (0.66-1.25); POTASSIUM 4.1 mmol/L (3.4-5.0)
[2019-02-28 08:48] LABS: HEMATOCRIT 26.8 % (42.0-52.0); HEMOGLOBIN 8.5 g/dl (13.5-18.0); MEAN CORPUSCULAR HEMOGLOBIN 28 pg (27.0-31.0)
[2019-02-28 09:04] VITALS: BP 143/46; PULSE 60; TEMP 98.1
[2019-02-28 09:35] LABS: BAND 12 % (0-10); LYMPHOCYTE 14 % (20.0-51.0); NEUTROPHILS 70 % (42.0-75.2)
[2019-02-28 09:36] LABS: ANISOCYTOSIS 1+; PLATELET ESTIMATE NORMAL (NORMAL)
[2019-02-28 11:04] VITALS: BP 132/58; PULSE 66; TEMP 97.3
[2019-02-28 12:37] LABS: COLLECTION METHOD CLEAN CATCH
[2019-02-28 13:19] LABS: MUCOUS Present /lpf; PH 6 (5-8); SQUAMOUS EPITHELIAL None Seen /hpf; URINE APPEARANCE Hazy; URINE BACTERIA Rare /hpf; URINE BILIRUBIN Negative (NEGATIVE); URINE BLOOD 1+ (NEGATIVE); URINE COLOR Straw; URINE GLUCOSE Negative (NEGATIVE); URINE KETONE Negative (NEGATIVE); URINE LEUKOCYTE ESTERASE 2+ (NEGATIVE); URINE NITRATE Negative (NEGATIVE); URINE PROTEIN(semi-quant) Negative (NEGATIVE); URINE RBC 0-2 /hpf; URINE UROBILINOGEN Negative (NEGATIVE)
[2019-02-28 16:15] VITALS: BP 134/47; PULSE 62; TEMP 98
[2019-02-28 19:19] VITALS: BP 132/50; PULSE 61; TEMP 97.6
[2019-03-01] VITALS (7 sets, daily range): BP systolic 117–146; BP diastolic 38–59; PULSE 59–83; TEMP 97.5–98.3
[2019-03-01 06:51] LABS: CALCIUM 9.4 mg/dL (8.4-10.2); CREATININE, serum 2.3 (0.66-1.25); POTASSIUM 3.9 mmol/L (3.4-5.0)
[2019-03-02 03:25] VITALS: BP 141/50; PULSE 61; TEMP 97.7
[2019-03-02 06:48] LABS: MEAN CELL VOLUME 90 fl (80.0-100.0); MEAN CORPUSCULAR HGB CONC 32 g/dl (33.0-37.0); MEAN PLATELET VOLUME 9.7 fl (7.4-10.4); PLATELET COUNT 397 K/mm3 (130-400); RED BLOOD COUNT 3.05 M/mm3 (4.20-5.60); REDCELL DISTRIBUTION WIDTH-CV 16.6 % (11.5-14.5)
[2019-03-02 06:57] LABS: CALCIUM 9.1 mg/dL (8.4-10.2); CREATININE, serum 2.63 (0.66-1.25); POTASSIUM 4.1 mmol/L (3.4-5.0)
[2019-03-02 07:06] LABS: HEMATOCRIT 27.5 % (42.0-52.0); HEMOGLOBIN 8.7 g/dl (13.5-18.0); MEAN CORPUSCULAR HEMOGLOBIN 29 pg (27.0-31.0)
[2019-03-02 07:47] VITALS: BP 130/82; PULSE 61; TEMP 97.6
[2019-03-02 07:52] LABS: BAND 7 % (0-10); HYPOCHROMIA 1+; LYMPHOCYTE 10 % (20.0-51.0); METAMYELOCYTE 2 % (0-0); NEUTROPHILS 78 % (42.0-75.2); PLATELET ESTIMATE NORMAL (NORMAL)
[2019-03-02 11:47] VITALS: BP 120/55; PULSE 83; TEMP 97.6
[2019-03-02] MEDS ORDERED: LEVAQUIN 2250 MG/TAB PO (12:48)
[2019-03-02] MEDS ORDERED: FERRO-TIME325 MG PO (12:49)
[2019-03-02] MEDS ORDERED: LASIX 40MG TABL40 MG PO (12:51)
[2019-03-02] MEDS ORDERED: PREDNISONE10 MG PO (12:53)
== END 2019-03-02 17:40 | disposition home health service (06) | DRG 291 ==
LOC: COL.ER 11:16 → MEDICAL 14:27
PROVIDERS: Emergency Medicine; Nurse Practitioner Family; Physician Assistant; ADMIT Internal Medicine
DX: I13.0 Hypertensive heart and chronic kidney disease with heart failure and stage 1 through stage 4 chronic kidney disease, or unspecified chronic kidney disease (principal); I50.33 Acute on chronic diastolic (congestive) heart failure; E87.2 Acidosis; N17.9 Acute kidney failure, unspecified; J44.1 Chronic obstructive pulmonary disease with (acute) exacerbation; N39.0 Urinary tract infection, site not specified; E78.5 Hyperlipidemia, unspecified; E11.319 Type 2 diabetes mellitus with unspecified diabetic retinopathy without macular edema; E11.22 Type 2 diabetes mellitus with diabetic chronic kidney disease; E11.65 Type 2 diabetes mellitus with hyperglycemia; N18.2 Chronic kidney disease, stage 2 (mild); E89.0 Postprocedural hypothyroidism; D63.1 Anemia in chronic kidney disease; R00.1 Bradycardia, unspecified; I48.0 Paroxysmal atrial fibrillation; I50.9 Heart failure, unspecified; R13.10 Dysphagia, unspecified; N18.3 Chronic kidney disease, stage 3 (moderate); I48.91 Unspecified atrial fibrillation; N40.0 Benign prostatic hyperplasia without lower urinary tract symptoms; N41.9 Inflammatory disease of prostate, unspecified; E87.5 Hyperkalemia; Z79.82 Long term (current) use of aspirin; Z85.850 Personal history of malignant neoplasm of thyroid; Z95.0 Presence of cardiac pacemaker; Z87.891 Personal history of nicotine dependence
CPT/HCPCS: 99232-AI; 99233-AI; 99239; A4216; G0378; J0696; J1644; J1815; J1940; J1956; J2543; J2916; J7512

== ENCOUNTER → 2019-11-27 | Outpatient (RCR) | payer OTHER ==
[~2019-11-27] MED LIST changes: +ALBUTEROL S0.4 MG/ML PO; +CORDARONE200 MG/TAB PO; +FERRO-TIME325 MG PO; +LASIX 40MG TABL40 MG PO; +LEVAQUIN 2250 MG/TAB PO; +PREDNISONE10 MG PO; +RT ADVAIR 128 DISKUS IH; +TESSALON P100 MG/CAP; +TESSALON P100 MG/CAP PO
== END | disposition home or self-care (01) ==
LOC: WSPT → WSC 08-29 13:54 → WSPT 09-08 10:00 → WSC 09-13 12:45 → WSPT 09-21 13:30 → WSC 14:00
DX: G20 Parkinson's disease (principal)

== ENCOUNTER → 2020-02-07 | Outpatient (CLI) | payer MEDICARE, OTHER | LOC: COL.RAD 09:08 | DX: G20 Parkinson's disease (principal); R13.10 Dysphagia, unspecified ==

== ENCOUNTER 2020-03-04 09:00 | Outpatient (RCR) | payer MEDICARE, OTHER | END 2020-04-28 | disposition home or self-care (01) | LOC: WSST | DX: R13.10 Dysphagia, unspecified (principal); G20 Parkinson's disease ==

== ENCOUNTER 2020-03-11 14:30 | Outpatient (RCR) | payer OTHER | END 2020-03-12 | disposition home or self-care (01) | LOC: WSC | DX: G20 Parkinson's disease (principal) ==

== ENCOUNTER 2020-05-08 14:00 | Outpatient (RCR) | payer MEDICARE, OTHER | END 2020-05-16 14:18 | disposition home or self-care (01) | LOC: WSC 14:00 | DX: G20 Parkinson's disease (principal) ==

== ENCOUNTER → 2020-06-07 | Outpatient (CLI) | payer MEDICARE, OTHER | LOC: COL.VAS 09:47 | DX: M79.89 Other specified soft tissue disorders (principal) ==

== ENCOUNTER → 2020-06-19 | Outpatient (CLI) | payer MEDICARE, OTHER ==
[2020-06-19 12:39] LABS: ALBUMIN 3.8 gm/dL (3.5-5.0); BILIRUBIN,TOTAL 0.4 mg/dL (0.0-1.0); CALCIUM 9.6 mg/dL (8.4-10.2); CREATININE, serum 2.08 (0.66-1.25); POTASSIUM 4.9 mmol/L (3.4-5.0); TOTAL PROTEIN 7.2 gm/dL (6.4-8.2)
[2020-06-19 12:46] LABS: BASO % 0.4 % (0.0-2.0); EOS # 0.2 (0.0-0.7); EOS % 2.5 % (0-4.0); GRAN # 6.2 (1.4-6.5); GRAN % 75.9 % (42.2-75.2); HEMOGLOBIN 10.9 g/dl (13.5-18.0); LYMPH # 0.9 (1.2-3.4); LYMPH % 11.5 % (20.0-51.0); MEAN CELL VOLUME 106 fl (80.0-100.0); MEAN CORPUSCULAR HEMOGLOBIN 34 pg (27.0-31.0); MEAN CORPUSCULAR HGB CONC 32 g/dl (33.0-37.0); MEAN PLATELET VOLUME 10.4 fl (7.4-10.4); MONO # 0.8 (0.1-0.6); MONO % 9.3 % (1.7-9.3); PLATELET COUNT 257 K/mm3 (130-400); RED BLOOD COUNT 3.23 M/mm3 (4.20-5.60); REDCELL DISTRIBUTION WIDTH-CV 13.1 % (11.5-14.5)
[2020-06-19 12:47] LABS: HEMATOCRIT 34.3 % (42.0-52.0)
[2020-06-19 13:09] LABS: THYROID STIMULATING HORMONE 3.37 uIU/mL (0.465-4.680)
== END ==
LOC: COL.RAD 11:42
PROVIDERS: Registered Nurse
DX: M79.89 Other specified soft tissue disorders (principal); E03.9 Hypothyroidism, unspecified

== ENCOUNTER 2020-09-13 10:50 | Inpatient (IN) | payer MEDICARE, OTHER ==
[~2020-09-13] VITALS: Ht 177.8 cm; Wt 95.0 kg
[2020-09-13 12:04] LABS: BASO % 0.3 % (0.0-2.0); EOS # 0.1 (0.0-0.7); EOS % 0.7 % (0-4.0); GRAN # 5.9 (1.4-6.5); GRAN % 83.3 % (42.2-75.2); LYMPH # 0.6 (1.2-3.4); LYMPH % 8.6 % (20.0-51.0); MEAN CELL VOLUME 106 fl (80.0-100.0); MEAN CORPUSCULAR HGB CONC 31 g/dl (33.0-37.0); MEAN PLATELET VOLUME 11.6 fl (7.4-10.4); MONO # 0.5 (0.1-0.6); MONO % 6.4 % (1.7-9.3); PLATELET COUNT 187 K/mm3 (130-400); RED BLOOD COUNT 2.82 M/mm3 (4.20-5.60); REDCELL DISTRIBUTION WIDTH-CV 15.6 % (11.5-14.5)
[2020-09-13 12:08] LABS: ARTERIAL BLD GAS O2 SATURATION 94.3 % (92-100); ARTERIAL BLD GAS TCO2 CT 28.3; ARTERIAL BLOOD GAS BASE EXCESS 0.3 (-2-2); ARTERIAL BLOOD GAS HCO3 26.7 meq/L (22-26); ARTERIAL BLOOD GAS PCO2 51.5 mmHg (35-45); ARTERIAL BLOOD GAS PO2 79.1 mmHg (80-100); ARTERIAL BLOOD GAS pH 7.33 (7.35-7.45)
[2020-09-13 12:09] LABS: HEMATOCRIT 29.9 % (42.0-52.0); HEMOGLOBIN 9.3 g/dl (13.5-18.0); MEAN CORPUSCULAR HEMOGLOBIN 33 pg (27.0-31.0)
[2020-09-13 12:11] LABS: INR 2.2 (0.8-3.0); PROTHROMBIN TIME 24.9 SECONDS (9.7-12.8)
[2020-09-13 12:14] LABS: PARTIAL THROMBOPLASTIN TIME 40.8 SECONDS (26.0-37.0)
[2020-09-13 12:29] LABS: C-REACTIVE PROTEIN 2.2 mg/dL (0.0-0.9)
[2020-09-13 12:51] LABS: ALANINE AMINOTRANSFERASE 13 U/L (4-49); ALKALINE PHOSPHATASE 105 U/L (50-136); ANION GAP 2 mmol/L (7-16); AST,SGOT 38 U/L (15-37); BILIRUBIN,TOTAL 0.5 mg/dL (0.0-1.0); BLOOD UREA NITROGEN 38 mg/dL (9-20); CALCIUM 8.8 mg/dL (8.4-10.2); CARBON DIOXIDE 32 mmol/L (22-30); CHLORIDE 108 mmol/L (98-107); CREATININE, serum 2.33 (0.66-1.25); GLUCOSE 78 mg/dL (74-106); POTASSIUM 4.8 mmol/L (3.4-5.0); SODIUM 142 mmol/L (137-145); TOTAL PROTEIN 6.1 gm/dL (6.4-8.2)
[2020-09-13 12:58] LABS: ALCOHOL(ethanol),MEDICAL < 10 mg/dL
[2020-09-13 13:01] LABS: TROPONIN-I 0.015 ng/mL (0.000-0.035)
[2020-09-13 16:40] LABS: COLLECTION METHOD CLEAN CATCH
[2020-09-13 16:50] LABS: MUCOUS Present /lpf; PH 5 (5-8); SQUAMOUS EPITHELIAL None Seen /hpf; URINE APPEARANCE Clear; URINE BACTERIA None Seen /hpf; URINE BILIRUBIN Negative (NEGATIVE); URINE BLOOD Negative (NEGATIVE); URINE COLOR Yellow; URINE GLUCOSE Negative (NEGATIVE); URINE KETONE Negative (NEGATIVE); URINE LEUKOCYTE ESTERASE Negative (NEGATIVE); URINE NITRATE Negative (NEGATIVE); URINE PROTEIN(semi-quant) 2+ (NEGATIVE); URINE RBC 0-2 /hpf; URINE UROBILINOGEN Negative (NEGATIVE)
[2020-09-13 17:08] LABS: TRICYCLIC ANTIDEPRESS URINE NEGATIVE
--- NOTE | 2020-09-13 19:29 | NUR ---
Vancomycin Initial Dosing Pharmacy Note Ordering provider: Олег Greene MD Indication/duration: Empiric SSTI coverage LABS: eCrCl ~ 32 mL/min based off of todays values Recommendation: Loading dose: 1.5 grams Maintenance dose: 1 gram every 24 hours Trough goal: 10-15 ug/mL Pharmacy will continue to follow.
[2020-09-13 20:11] VITALS: BP 129/52; PULSE 91; TEMP 97.7
[2020-09-13 23:31] VITALS: BP 122/56; PULSE 59; TEMP 97.5
[2020-09-14 04:01] VITALS: BP 135/48; PULSE 59; TEMP 97.8
--- NOTE | 2020-09-14 05:55 | NUR ---
Patient c/o shob, diminsished lung sounds throughout, mouth breathing noted, spo2 86%, O2 @ 2L per NC started, Paitent repositioned in bed with HOB elevated, no swelling noted to BLE or RUE, Call placed to charge nurse, respiratory, Jazmine JIMENEZ - all coming to bedside. See new orders.
[2020-09-14 05:58] LABS: ARTERIAL BLD GAS O2 SATURATION 93.2 % (92-100); ARTERIAL BLD GAS TCO2 CT 26.2; ARTERIAL BLOOD GAS BASE EXCESS -0.5 (-2-2); ARTERIAL BLOOD GAS HCO3 24.9 meq/L (22-26); ARTERIAL BLOOD GAS PCO2 43.8 mmHg (35-45); ARTERIAL BLOOD GAS PO2 70.6 mmHg (80-100); ARTERIAL BLOOD GAS pH 7.37 (7.35-7.45)
--- NOTE | 2020-09-14 07:00 | NUR ---
Am bsl is 45, awake, alert, oriented x3, fed patient 2 OJ 8 ounces, 1 yogurt, 1 string cheese, 1 ensure- rechecked BSL - 57- passed onto day shift nurse
[2020-09-14 07:23] VITALS: BP 99/77; PULSE 67; TEMP 97.2
[2020-09-14 07:47] LABS: MEAN CORPUSCULAR HGB CONC 30 g/dl (33.0-37.0); MEAN PLATELET VOLUME 11.7 fl (7.4-10.4); PLATELET COUNT 183 K/mm3 (130-400); RED BLOOD COUNT 2.81 M/mm3 (4.20-5.60); REDCELL DISTRIBUTION WIDTH-CV 15.9 % (11.5-14.5); RETIC # 0.09 M/mm3 (0.02-0.16); RETIC % 3.2 % (0.5-3.52)
[2020-09-14 07:51] LABS: HEMATOCRIT 31.4 % (42.0-52.0); HEMOGLOBIN 9.4 g/dl (13.5-18.0); MEAN CELL VOLUME 112 fl (80.0-100.0); MEAN CORPUSCULAR HEMOGLOBIN 33 pg (27.0-31.0)
[2020-09-14 08:01] LABS: ALBUMIN 3.2 gm/dL (3.5-5.0); BILIRUBIN,TOTAL 0.6 mg/dL (0.0-1.0); CALCIUM 8.7 mg/dL (8.4-10.2); CREATININE, serum 2.31 (0.66-1.25); MAGNESIUM 2.4 mg/dL (1.6-2.3); PHOSPHOROUS 3.5 mg/dL (2.5-4.5); POTASSIUM 4.7 mmol/L (3.4-5.0); TOTAL PROTEIN 6.3 gm/dL (6.4-8.2)
[2020-09-14 08:11] LABS: IRON,SERUM 47 ug/dL (35-150)
[2020-09-14 08:21] LABS: TOTAL IRON BINDING CAPACITY 260 ug/dL (261-462)
[2020-09-14 08:27] LABS: THYROID STIMULATING HORMONE 0.638 uIU/mL (0.465-4.680)
--- NOTE | 2020-09-14 09:55 | NUR ---
Shift assessment complete. Pt sitting up in bed, friend BREA at bedside. Pt alert and oriented to self only. Answers name/birthdate correctly, unable to answer current day or year, [facility] PERR[facility], follows commands, muscle strength weak but equal bilaterally. Large bruises scattered over body with large bruise over left shoulder/upper arm. RUE with 3+ pitting edema, cool to touch. INT to right wrist with bloody drainage, flushes easily. Audible wheezing while resting in bed, pt reports SOA. Lungs diminished to auscultation. NC on at 2 lpm O2 with sats 93-95%. Heart RRR. Denies needs at this time. Call light in reach.
[2020-09-14 10:20] LABS: BAND 15 % (0-10); BASOPHIL 1 % (0-2); EOSINOPHIL 3 % (0-4); LYMPHOCYTE 12 % (20.0-51.0); NEUTROPHILS 62 % (42.0-75.2); PLATELET ESTIMATE NORMAL (NORMAL)
[2020-09-14 10:21] LABS: HYPOCHROMIA 2+
[2020-09-14 10:22] LABS: ANISOCYTOSIS 1+
[2020-09-14 11:35] VITALS: BP 100/48; PULSE 60; TEMP 97.4
--- NOTE | 2020-09-14 13:22 | NUR ---
Plan is to go to a SNF. ALTAGRACIA met with patient and POA in Room LORE GUIDRY. Indra or A friend who can get a hold of her Federica To (toe) . Patient is hard of hearing and POA answered on behalf of patient. POA indicated that PCP is [facility] [place] and [place] from [place]. [facility] is [facility]. Patient has in the past completed OT/OP. ALTAGRACIA staffed with PT and reported Decline and recommends SNF. ALTAGRACIA will send referrals [facility], [facility], [facility] for patient request. Patient has had [facility] [employer] [facility]. Patient uses cane, walker or rolator. Patients contact number . Awaiting response for SNF.
[2020-09-14 16:39] VITALS: BP 133/48; PULSE 60; TEMP 97.2
--- NOTE | 2020-09-14 17:42 | NUR ---
Oriented to self today. Conversation remains confused but does follow commands. IV lasix and vanco administered per orders. Remains on 2 lpm O2 NC.
--- NOTE | 2020-09-14 19:27 | NUR ---
Patient sitting upright in bed, patient/POA teaching re: offloading pressure areas, skin care, preventing pressure ulcers, patient is oriented to self, place, reoriented to situation, call marian w/i roz corral per gravity w/o issues, telemetry in use, no s/s of hypo/hyper glycemia, good appetite, renal diet continues, +3pitting edema noted to L upper extremity with redness, generalized bruising noted to body, O2@2L per NC in use SPO2 95%, fall precautions in place.
[2020-09-14 19:37] VITALS: BP 115/41; PULSE 59; TEMP 97.8
--- NOTE | 2020-09-14 20:01 | NUR ---
Received call from Lab- 2nd blood culture bottle +staph gram positive - call placed to Jazmine Hudson - notified- will review chart and make changes as necessary.
[2020-09-14 20:10] LABS: FOLATE (FOLIC ACID) 11.5 ng/mL (7.0-31.4)
--- NOTE | 2020-09-14 20:52 | NUR ---
Patient in bed, HOB elevated, O2@2L per NC, respirations even, SHOB noted when speaking, answers all orientation questions appropriately, forgetfulness noted, L upper extremity with +2 swelling, redness, noted- elevated on pillow, q 2 hour turns initiated, brusising in various stages noted to BUE, back, call fonseca w/i reach, good appetite, no s/s of hypo/hyper glycemia. Will continue to monitor. Updated patient and POA on blood culture results- verbalizes understanding
[2020-09-15] VITALS (116 sets, daily range): BP systolic 107–158; BP diastolic 43–96; PULSE 59–66; TEMP 97.6–98.2; O2SAT 90–99
--- NOTE | 2020-09-15 02:55 | NUR ---
Patient awake, alert, oriented x to self, date, president however, patient repeatatively states "I need to go to my room" can not redirect, moving towards side of bed, bed alarm increased to more sensitive setting, offered snack and ensure, glasses and hearing aid in place, repositioned in bed, elevated arms, patient continues to be implusive and not redirectable, increased checks.
--- NOTE | 2020-09-15 04:47 | NUR ---
Patient continues to be implusive and aggitated, Call placed to Jazmine Hudson and recieved order for Lorazepam 0.5mg IV once, given to patient, patient continues to pull at IV, courtney, blankets, throwing pillows, unable to redirect. stayed at bedside, patient pulled IV out of R forearm- site bandaged and pressure applied. SCDs intact.
--- NOTE | 2020-09-15 04:49 | NUR ---
Resting quietly at this time- VS stable, will continue to montior. Fall precautions increased.
[2020-09-15 06:26] LABS: BASO % 0.3 % (0.0-2.0); EOS # 0.2 (0.0-0.7); GRAN % 74.7 % (42.2-75.2); LYMPH # 0.9 (1.2-3.4); LYMPH % 11.4 % (20.0-51.0); MEAN CELL VOLUME 108 fl (80.0-100.0); MEAN CORPUSCULAR HGB CONC 31 g/dl (33.0-37.0); MEAN PLATELET VOLUME 11.5 fl (7.4-10.4); MONO # 0.8 (0.1-0.6); MONO % 9.7 % (1.7-9.3); PLATELET COUNT 178 K/mm3 (130-400); RED BLOOD COUNT 2.54 M/mm3 (4.20-5.60); REDCELL DISTRIBUTION WIDTH-CV 15.8 % (11.5-14.5)
[2020-09-15 06:32] LABS: HEMATOCRIT 27.4 % (42.0-52.0); HEMOGLOBIN 8.4 g/dl (13.5-18.0); MEAN CORPUSCULAR HEMOGLOBIN 33 pg (27.0-31.0)
[2020-09-15 06:33] LABS: BILIRUBIN,TOTAL 0.7 mg/dL (0.0-1.0); CALCIUM 8.8 mg/dL (8.4-10.2); CREATININE, serum 2.92 (0.66-1.25); POTASSIUM 4.9 mmol/L (3.4-5.0); TOTAL PROTEIN 6.1 gm/dL (6.4-8.2)
--- NOTE | 2020-09-15 08:50 | NUR ---
Shift assessment complete. Pt resting in bed w/eyes closed. Rouses to verbal stimulation. Disoriented except to self. LUE with 3+ edema. Large bruises covering body with entire left shoulder area covered in large bruise. INT to right hand w/o s/s complication. Appears comfortable and denies needs at this time. Call light in reach.
--- NOTE | 2020-09-15 12:30 | NUR ---
Pt agitated, occasional moans and groans and pulling at IV/Alcazar. Remains very drowsy and has had nothing to eat or drink since last night. Blood sugar checked and was 70. notified and D5W started at 50 ml/hr. Mitts placed bilaterally. Tylenol administered per orders. Continuing to monitor.
--- NOTE | 2020-09-15 17:36 | NUR ---
Resting in bed w/eyes closed at this time. Appears calm and is no longer fidgeting in bed. Mitts on bilaterally. D5W running at 50 ml/hr. Bed alarm on.
[2020-09-15 20:31] LABS: CREATININE, serum 2.55 (0.66-1.25); POTASSIUM 5.1 mmol/L (3.4-5.0)
--- NOTE | 2020-09-15 21:11 | NUR ---
call recieved from Telemetry amelia 30's, call placed to Jazmine Hudson- at bedside, NON EKG stat, BP 142/56, 68, 12, 98% on 2L O2, HOB elevated, patient continues to try to hit staff, pull lines and wires, unable to redirect, will transfer to ICU Bed 8-
--- NOTE | 2020-09-15 21:31 | NUR ---
Called report to [facility] ICU- transferring patient with staff to ICU bed 8
--- NOTE | 2020-09-15 21:40 | NUR ---
Pt arrived to ICU room 8 via bed with floor nurse at the time. Pt transferred from the floor bed to the ICU bed with the assistance of three. Pt is minimally responsive to voice, so unable to orient to room. Pt repositioned in the bed. Call light within reach.
[2020-09-16] VITALS (858 sets, daily range): BP systolic 125–163; BP diastolic 45–76; PULSE 59–74; TEMP 97.5–99; O2SAT 66–100
[2020-09-16 05:16] LABS: BASO % 0.6 % (0.0-2.0); EOS # 0.2 (0.0-0.7); GRAN # 3.4 (1.4-6.5); GRAN % 68.3 % (42.2-75.2); LYMPH # 0.8 (1.2-3.4); LYMPH % 15.1 % (20.0-51.0); MEAN CELL VOLUME 108 fl (80.0-100.0); MEAN CORPUSCULAR HGB CONC 30 g/dl (33.0-37.0); MONO # 0.6 (0.1-0.6); MONO % 11.4 % (1.7-9.3); PLATELET COUNT 171 K/mm3 (130-400); REDCELL DISTRIBUTION WIDTH-CV 15.6 % (11.5-14.5)
[2020-09-16 05:23] LABS: ALBUMIN 2.9 gm/dL (3.5-5.0); BILIRUBIN,TOTAL 0.8 mg/dL (0.0-1.0); CALCIUM 8.9 mg/dL (8.4-10.2); CREATININE, serum 2.33 (0.66-1.25); POTASSIUM 4.7 mmol/L (3.4-5.0)
[2020-09-16 05:33] LABS: HEMOGLOBIN 8.4 g/dl (13.5-18.0); MEAN CORPUSCULAR HEMOGLOBIN 32 pg (27.0-31.0)
--- NOTE | 2020-09-16 07:00 | NUR ---
PT SLEEPING IN BED. PT'S VSS. PT HAS D5W RUNNING AT 50ML/HR. BED ALARM ACTIVE. WILL CONTNUE TO MONITOR.
--- NOTE | 2020-09-16 12:35 | NUR ---
First visit from the rn telemetry. No needs right now.
--- NOTE | 2020-09-16 13:47 | NUR ---
Order Make Up Clerk faxed updates to [facility], and [facility]. [facility] has declined the patient due to psych needs, meds required, and aggressive behavior. [facility] reports that they cannot accept patient for post acute rehab at this time. The team at [facility] will follow along to see if the patient's behaviors subside.
[2020-09-16] MEDS ORDERED: NORVASC 5MG5 MG/TAB PO (15:23)
[2020-09-16] MEDS ORDERED: ZEBETA10 MG PO (15:24)
[2020-09-16] MEDS ORDERED: SINEMET 25/101 UDTAB PO (15:25)
[2020-09-16] MEDS ORDERED: FERRO-TIME325 MG PO (15:27)
[2020-09-16] MEDS ORDERED: ELIQUIS 2.5 PO (15:28)
[2020-09-16] MEDS ORDERED: LASIX 20MG TABL20 MG PO (15:30)
[2020-09-16] MEDS ORDERED: 00186-0370-20 IH (15:32)
[2020-09-16] MEDS ORDERED: CRESTOR5 MG PO (15:33)
[2020-09-16] MEDS ORDERED: ZOFRAN 4MG T4 MG/TAB PO (15:34)
[2020-09-16] MEDS ORDERED: REQUIP0.25 MG PO (15:35)
--- NOTE | 2020-09-16 20:16 | NUR ---
Received report from NAINA Lopez. Patient laying in bed attempting to pull at IV site and monitor chords. Attempted to put mitts on patient, patient able to get mitts of multiple times and throw them on the floor. VSS. Patient not alert or oriented to sitation or person. Medications verified and all questions answered. Will resume care at this time.
--- NOTE | 2020-09-16 21:30 | NUR ---
Nurse attempted to insert IV 20g once in Right AC and was unsuccessful. 1 successful attempt to insert 20g into right wrist. Line flushes and has blood return.
--- NOTE | 2020-09-16 21:45 | NUR ---
Nurse heard patients bed alarm going off and went into patient room. Patient had pulled out the IV in his right shoulder. Tip of IV catheter still intact. Nurse placed guaze and tape over IV site and held manual pressure until bleeding stopped. Patient was attempting to get out of bed and stated he was hungry, cold, tired and was sick of this joke and wanted out of here. Bernarde stated patient was NPO status and was not able to eat or drink but had fluids running and stated patient was in the hospital for AMS and cellulitis. Patient refused to listen to nurse and denied he was in the hospital. Patient began to get agitated and attempt to climb out of bed and pull at lines. Nurse called BARBARA Lucero at 2050 and received orders for 2mg IM haldol.
[2020-09-17] VITALS (324 sets, daily range): BP systolic 136–165; BP diastolic 44–75; PULSE 59–71; TEMP 97.5–97.8; O2SAT 69–100
--- NOTE | 2020-09-17 05:37 | NUR ---
Nurse went into patient room and noted that patient had pulled out IV in right wrist. Nurse called discharge rn and had jv baseball coach help in assissting to keep patient still while inserting a new IV. One successful IV attempt was completed in patients right upper arm and a 20g IV was inserted.
[2020-09-17 05:41] LABS: BASO % 0.4 % (0.0-2.0); EOS # 0.2 (0.0-0.7); EOS % 3.3 % (0-4.0); GRAN # 4.9 (1.4-6.5); LYMPH # 0.9 (1.2-3.4); LYMPH % 12.9 % (20.0-51.0); MEAN CORPUSCULAR HGB CONC 32 g/dl (33.0-37.0); MEAN PLATELET VOLUME 10.7 fl (7.4-10.4); MONO # 0.6 (0.1-0.6); MONO % 9.5 % (1.7-9.3); PLATELET COUNT 190 K/mm3 (130-400); RED BLOOD COUNT 2.92 M/mm3 (4.20-5.60); REDCELL DISTRIBUTION WIDTH-CV 15.1 % (11.5-14.5)
[2020-09-17 05:42] LABS: HEMATOCRIT 29.9 % (42.0-52.0); HEMOGLOBIN 9.5 g/dl (13.5-18.0); MEAN CELL VOLUME 102 fl (80.0-100.0); MEAN CORPUSCULAR HEMOGLOBIN 33 pg (27.0-31.0)
[2020-09-17 05:52] LABS: CALCIUM 9.3 mg/dL (8.4-10.2); CREATININE, serum 1.76 (0.66-1.25); POTASSIUM 4.4 mmol/L (3.4-5.0)
--- NOTE | 2020-09-17 07:15 | NUR ---
PT RESTING IN BED. ALERT/ORIENTED X2. ORIENTED TO SELF AND PLACE. WEAK BILATERAL HAND SALES ACCOUNT SPECIALIST. NOT FOLLOWING VERBAL COMMANDS. PT STATES "I DON'T KNOW WHY I'M HERE."
--- NOTE | 2020-09-17 07:53 | NUR ---
Received report from NAINA Gil. assumed care of pt at this time.
--- NOTE | 2020-09-17 08:30 | NUR ---
PLAN FOR PT TO HAVE LP TODAY IN RADIOLOGY. ATTEMPTED TO REACH NEXT OF KIN LISTED FOR CONSENT WITH NO ANSWER. CONTACTED SOCIAL WORK DIRECTOR LJ TO ASSIST WITH CONTACTING A NEXT OF KIN.
--- NOTE | 2020-09-17 10:18 | NUR ---
PT TO RADIOLOGY VIA CART AT THIS TIME.
--- NOTE | 2020-09-17 10:30 | NUR ---
PT RETURN TO ROOM 6 AT THIS TIME. PER SEAM STEAMER JERICHO, UNABLE TO START DIALYSIS TODAY D/T INFILTRATION AT SITE. STATES SHE WILL PERFORM DIALYSIS TOMORROW AFTER HEART CATH.
--- NOTE | 2020-09-17 10:55 | NUR ---
PT RETURN FROM RADIOLOGY. TRANSFERRED TO INPATIENT BED VIA SLIDE BOARD. PT IN SUPINE POSITION. PER SCHOOL LEADER PT TO REMAIN IN SUPINE POSITION X1 HOUR.
[2020-09-17 11:33] LABS: GLUCOSE,CSF 66 mg/dL (40-70)
[2020-09-17 12:27] LABS: CSF APPEARANCE CLEAR; CSF COLOR COLORLESS
[2020-09-17 12:28] LABS: CSF MONONUCLEAR 100 % (70-100); CSF POLYMORPHONUCLEAR 0 % (0-6); CSF RBC 3 /mm3 (0-0)
--- NOTE | 2020-09-17 14:34 | NUR ---
ULTRASOUND AT BEDSIDE.
--- NOTE | 2020-09-17 16:30 | NUR ---
SPEECH THERAPIST AT BEDSIDE TO PERFROM BEDSIDE SWALLOW. STATES TO GIVE PILLS CRUSHED IN APPLESAUCE. PT WILL REQUIRE SWALLOW STUDY TOMORROW. NO DIET ORDER PLACED AT THIS TIME.
--- NOTE | 2020-09-17 16:38 | NUR ---
The patient's DPOA-HC is Mirela Burrell. Mirela brought a copy of completed DPOA-HC paperwork to this SW. A copy was placed in the chart.
--- NOTE | 2020-09-17 18:00 | NUR ---
PT TRANSFERRED TO MEDICAL INPT BED VIA SLIDEBOARD. TRANSFERRED TO ROOM 313 VIA BED WITH REMEDIATION PROJECT ENGINEER ON TELEMETRY. PT ON ROOM AIR.
--- NOTE | 2020-09-17 18:14 | NUR ---
Patient to room via bed from ICU. Patient is alert, disoriented. Carter patient to situation. Denies pain. Bruising noted to bilat arms and legs. Alcazar to dependent drainage with clear yellow urine in bag and tubing. IV site to right shoulder with D5W at 60mL/hr. Patient weak in moving extremities and in fashion coordinator. Patient says that he feels weak. Oriented to room. Denies needs.
[2020-09-18] VITALS (7 sets, daily range): BP systolic 106–161; BP diastolic 42–88; PULSE 018–108; TEMP 96.8–98
--- NOTE | 2020-09-18 00:39 | NUR ---
PT BECOMING COMBATIVE AGITATED W STAFF AND ATTEMPTING TO PULL OUT MUNOZ CATH AND GET OUT OF BED. JOHN JIMENEZ CALLED TO UPDATE. WILL PLACE ORDER FOR PRN HALADOL. SERAQUIL WAS TRYED FIRST AND DID NOT WORK.
--- NOTE | 2020-09-18 01:56 | NUR ---
1930- ASSESSMENT COMPLETE. PT ALERT NOT ORIENTATED. SHOALWATER AND DOES NOT VERBALIZES APPROPRIATLY. PULLING AT MUNOZ CATH. REPOSITIONED. BED LOW. BED ALARM ON. IV TO RT UPPER ARM NOT INSITE, NO PULLING AT LINE. PM MEDS GAVE CRUSHED W APPLESAUCE OTHERWISE NPO FOR SWALLOW STUDY IN AM W RADIOLOGY. 0000- PT BECOMING MORE AGGITATED, REPOSITIONED SEVERAL TIMES. ATTEMPTS TO GET OUT OF BED, PULLING AT MUNOZ, SCD. LOPEZ CALLED AND UPDATED ON AGGITATION.
--- NOTE | 2020-09-18 04:44 | NUR ---
PT CONTINES TO TRY TO GET UP OUT OF BED. ROCKING BACK AND FORTH TO ATTEMPT, LEGS HANGING OVER BED, BED ALARM ON AND IN RNS VIEW FROM DESK.
--- NOTE | 2020-09-18 07:40 | NUR ---
Assessment as charted. pt confused, oriented x3, in bed. IV rt upper arm, NS 60ml/hr intact no reddness/swelling. SCD off at this time. O2 was 87, put NC 2L, O2 went up to 96. pt states 0/10 pain. pt is aggitated at this time. Lt arm edematous with erythema CMS WNL.
--- NOTE | 2020-09-18 09:06 | NUR ---
Pt assessment complete. Pt is laying in bed, constantly moving. He is alert but not oriented. He is able to state he was born in [birth year]. Denies pain. Oxygen placed d/t low O2 sats. Currently on 2L. Alcazar DD, yellow urine. Fall precautions in place. Student nurse at bedside. IVF infusing.
--- NOTE | 2020-09-18 14:04 | NUR ---
A PICC line being placed for the patient this day. ST ordered. Per nurse the patient failed his swallow study and the patient to have TPN initiated. ALTAGRACIA faxed updates to [facility] and [facility].
--- NOTE | 2020-09-18 18:42 | NUR ---
Pt restless through the day. Was pleasantly confused. No mitts required for care today. LUE did begin to weap, small skin tear when turning patient to that arm, approximately 2cm. PICC to RUE. Remained on 2L O2. DPOA remained at bedside through the day. Ottoniel ULLOA.
[2020-09-19] VITALS (7 sets, daily range): BP systolic 122–152; BP diastolic 47–91; PULSE 61–72; TEMP 98.1–98.7
--- NOTE | 2020-09-19 01:59 | NUR ---
2030- PT DPOA AT BEDSIDE. POC DISCUSSED W HER. ALERT AND OX 2. ASSESSMENT COMPLETE. PICC TO RT UPPER ARM D5 RUNNING PER ORDER. ORAL CARE PROVIDED. NPO. TAMMY TO DD. 2L N/C. BS STABLE TODAY. DENIES ANY PAIN. LT UPPER ARM DRAINING, RED AND COVERED ELEVATED ON PILLOW.
--- NOTE | 2020-09-19 05:42 | NUR ---
PT RESTED FOR A FEW HOURS OTHERWISE UP OVERNIGHT AGAIN. NEEDS MET. FREQ REPOSTIONED IN BED.
[2020-09-19 06:49] LABS: BASO % 0.3 % (0.0-2.0); EOS # 0.2 (0.0-0.7); EOS % 2.3 % (0-4.0); GRAN % 77.1 % (42.2-75.2); LYMPH # 0.6 (1.2-3.4); LYMPH % 9.6 % (20.0-51.0); MEAN CELL VOLUME 103 fl (80.0-100.0); MEAN CORPUSCULAR HGB CONC 32 g/dl (33.0-37.0); MONO # 0.7 (0.1-0.6); MONO % 10.1 % (1.7-9.3); PLATELET COUNT 198 K/mm3 (130-400); RED BLOOD COUNT 2.43 M/mm3 (4.20-5.60)
[2020-09-19 07:08] LABS: MEAN CORPUSCULAR HEMOGLOBIN 33 pg (27.0-31.0)
--- NOTE | 2020-09-19 07:45 | NUR ---
Shift assessment complete. Pt resting in bed, quiet and calm at this time. Alert but unable to follow commands and speech incomprehensible. PERRLA. Unable to assess hand rn corrections. Moves extremities on the bed. Lungs diminshed to auscultation w/breathing labored. O2 at 2 lpm NC. Alcazar emptied with 300 mls out. Heart RRR. PICC to RYNE w/o s/s complication, D5W running at 60 ml/hr. LUE w/3+ edema and skin tear to left forearm, dressing CDI. Bed alarm on and call light in reach. Continuing to monitor.
[2020-09-19 09:48] LABS: ALBUMIN 2.9 gm/dL (3.5-5.0); BILIRUBIN,TOTAL 0.9 mg/dL (0.0-1.0); CALCIUM 8.9 mg/dL (8.4-10.2); CREATININE, serum 1.79 (0.66-1.25); MAGNESIUM 1.7 mg/dL (1.6-2.3); POTASSIUM 4.2 mmol/L (3.4-5.0); TOTAL PROTEIN 5.9 gm/dL (6.4-8.2)
[2020-09-19 09:51] LABS: INR 1.3 (0.8-3.0); PROTHROMBIN TIME 14.1 SECONDS (9.7-12.8)
[2020-09-19 09:55] LABS: PRE ALBUMIN 12.7 mg/dL (17.6-36.0)
--- NOTE | 2020-09-19 10:23 | NUR ---
SW attended clinical rounds. The patient's DPOA-HC, BREA, was at bedside. Plan is to start the patient on TPN and see how he does the next couple of days. The hospitalist then discussed how the DPOA-HC would need to consider aggressive care vs palliative care. SW to continue to follow.
--- NOTE | 2020-09-19 11:49 | NUR ---
I met with NJ in patient's room today to discuss goals of care. They have known each other for greater than 15 years and supported each other during that time. Pt has no known living family. His first of a massive DE and they never had children. He has two cats that live with him that NJ is currently taking care of. BREA does report that she knows that he would not want to live on machines without a quality of life. She is aware that he failed his swallow test and is not believed to be able even to take medications by mouth. 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 If there was a chance that he could get better again, then she would see the benefit of a feeding tube but not if he can't get better. She is not yet ready to make a decision, but will consider the options and will be trying to make a decision over the next few days. Support provided.
--- NOTE | 2020-09-19 17:00 | NUR ---
TPN started at this time.
--- NOTE | 2020-09-19 18:24 | NUR ---
Pt drowsy all day. Rested for most of day quietly w/eyes closed, occasionally fidgets with gown and blankets. NJ (DPOA) at bedside today. TPN started and pt tolerating well so far. Continuing to monitor.
[2020-09-20 04:38] VITALS: BP 155/55; PULSE 63; TEMP 98
--- NOTE | 2020-09-20 07:00 | NUR ---
Report received from nightshift nurse, pt sleeping in bed. Will continue to monitor.
[2020-09-20 07:12] LABS: BASO % 0.5 % (0.0-2.0); EOS # 0.2 (0.0-0.7); EOS % 3.2 % (0-4.0); GRAN # 4.3 (1.4-6.5); GRAN % 69.8 % (42.2-75.2); LYMPH # 0.9 (1.2-3.4); LYMPH % 14.4 % (20.0-51.0); MEAN CELL VOLUME 104 fl (80.0-100.0); MEAN CORPUSCULAR HGB CONC 32 g/dl (33.0-37.0); MONO # 0.7 (0.1-0.6); MONO % 11.3 % (1.7-9.3); PLATELET COUNT 228 K/mm3 (130-400); RED BLOOD COUNT 2.59 M/mm3 (4.20-5.60)
[2020-09-20 07:15] LABS: HEMATOCRIT 26.9 % (42.0-52.0); HEMOGLOBIN 8.5 g/dl (13.5-18.0); MEAN CORPUSCULAR HEMOGLOBIN 33 pg (27.0-31.0)
[2020-09-20 07:23] LABS: CALCIUM 8.6 mg/dL (8.4-10.2); CREATININE, serum 1.72 (0.66-1.25); MAGNESIUM 2.1 mg/dL (1.6-2.3); PHOSPHOROUS 3.4 mg/dL (2.5-4.5); POTASSIUM 4.1 mmol/L (3.4-5.0)
[2020-09-20 08:16] VITALS: BP 149/53; PULSE 59; TEMP 97.5
--- NOTE | 2020-09-20 09:13 | NUR ---
Assessmetn charted. Pt is awake nad alert to everything but place, able to tell me his and year and time. LFA skin tear dressing applied mepilex dressing. PICC to RYNE with TPN infusing. cleaned out mouth with mint mouth swabs and pt did cough from this, cleaned face, sitting up in bed, staets he is not in pain but LUE feels very tight. Bed alarm on. Alcazar draining alberto hazy urine to DD in bag at sie of bed. Will continue to monitor.
[2020-09-20 11:45] VITALS: BP 145/54; PULSE 86; TEMP 97.8
--- NOTE | 2020-09-20 13:59 | NUR ---
Talked with BREA again today about upcoming choices for goals of care for Faraz. She is tearful at times and verbalizes that she doesn't want to make a bad decision. We did talk about pluses and minuses of various choices that she is looking at. Support provided as we talked about swallowing difficulties and what each choice brings with it.
--- NOTE | 2020-09-20 16:06 | NUR ---
SW attended clinical rounds. The patient's DPOA-HC is still considering goals of care. SW to continue to follow.
[2020-09-20 16:15] VITALS: BP 137/56; PULSE 58; TEMP 98.1
--- NOTE | 2020-09-20 17:53 | NUR ---
Pt restign in bed, was sleepy and lethargic this afternoon but able to arouse and answer most orientation questions well. NJ at bedside most of day, pt asking for food but able to redirect easily with food. Will give bedside shift report to nightshift nurse who will resume care.
--- NOTE | 2020-09-20 21:00 | NUR ---
Patient assessed at this time. Alert, disoriented to place, time, and situation. Denies having pain and discomfort at this time. PICC to RUE, with TPN running per orders. Site without redness, warmth, swelling, and pain. Edema and redness continues to LUE. Mepilex to skin tear on left forearm changed due to weeping. Denies SOB and dyspnea. On oxygen at 2 L/min via NC. LS CTA in upper lobes, diminished in lower. Respirations even and unlabored. HRR. Telemetry in place. Capillary refill less than 3 seconds. Non-tenting skin turgor. BSAx4. Abdomen soft and non-tender. SCDs on. Voices no questions, needs, or concerns at this time. Resting in bed with call light within reach. High fall risk precautions in place.
[2020-09-20 21:56] VITALS: BP 136/38; PULSE 59; TEMP 97.8
[2020-09-20 23:54] VITALS: BP 138/39; PULSE 61; TEMP 98
[2020-09-21 05:03] VITALS: BP 141/46; PULSE 59; TEMP 97.7
--- NOTE | 2020-09-21 05:44 | NUR ---
Patient has been resting in bed. Denies having pain and discomfort. Patient pleasantly confused. No combative behaviors. Allowing repositioning in bed. Indwelling courtney catheter patent. Continues on TPN per orders. Edema/redness/warmth to LUE continues. Skin tear to left forearm weeping. Voices no questions, needs, or concerns at this time. Resting in bed with call light within reach. High fall risk precautions remain in place.
[2020-09-21 07:58] LABS: CALCIUM 8.8 mg/dL (8.4-10.2); CREATININE, serum 1.68 (0.66-1.25); MAGNESIUM 2.4 mg/dL (1.6-2.3); PHOSPHOROUS 3.1 mg/dL (2.5-4.5); POTASSIUM 4.3 mmol/L (3.4-5.0)
[2020-09-21 07:59] VITALS: BP 149/86; PULSE 60; TEMP 97.5
--- NOTE | 2020-09-21 10:00 | NUR ---
Patient sitting up at edge of bed. 2 assisted. Full bed bath given. courtney cares given. fresh linens. His friend BLANCA at bedside, very supportive. Patient having confusion, reoriented as needed. High fall risk followed. Hard of hearing, new batteries needed for hearing aids. Picc to RUE, TPN per orders. Patient remains NPO for his safety. Scds ble, some edema noted. Heel protectors on. Brusing noted to body, see assessment. Will monitor.
[2020-09-21 11:32] VITALS: BP 111/72; PULSE 65; TEMP 97.4
--- NOTE | 2020-09-21 14:05 | NUR ---
Patient repositioned in bed. Left arm continues to weep, new dressing. Arm elevated. Patient assisted to shave, he is prior and is normally clean shaven. His friend BLANCA agreed to have him shaved. Patient tolerated well & both were appreciate of cares given.
[2020-09-21 15:23] VITALS: BP 130/52; PULSE 59; TEMP 97.5
--- NOTE | 2020-09-21 18:27 | NUR ---
Patient repositined in bed. Left arm less weeping noted, but new dressing applied. Left arm continues to be elevated. assisting with edema. BLE elevated with pillows and heel protectors on. Rue picc with Tpn per orders. His friend Luis Antonio heading home for the day. She assisted with communication today, patient very hard of hearing. Will report off to night nurse
[2020-09-21 19:18] VITALS: BP 134/46; PULSE 62; TEMP 97.5
--- NOTE | 2020-09-21 20:00 | NUR ---
Patient assessed at this time. Alert, oriented to self. Continues on place, time, and situation. Denies having pain and discomfort at this time. PICC to RUE with TPN running per orders. Denies SOB and dyspnea. LS CTA in upper lobes, diminished in lower. Respirations even and unlabored. HRR. Telemetry in place. Capillary refill less than 3 seconds. Non-tenting skin turgor. BSAx4. Abdomen soft and non-tender. 3+ edema LUE. Redness/warmth/weeping continues. Dressing to skin tear on left forearm changed. 1+ edema BLE. Needs frequent reminders that is can not eat or drink. High fall risk precautions in place. Indwelling courtney catheter patent, and draining alberto urine. Voices no questions, needs, or concerns at this time. Resting in bed with call light within reach.
[2020-09-21 22:46] VITALS: BP 146/52; PULSE 64; TEMP 98.7
[2020-09-22 04:48] VITALS: BP 141/62; PULSE 63; TEMP 98
--- NOTE | 2020-09-22 05:52 | NUR ---
Patient has been resting in bed. Awake on and off throughout the night. Redirected to place and time. Has been wearing home CPAP. Repositioned in bed. Indwelling courtney catheter. TPN continues per orders. Voices no questions, needs, or concerns at this time. Tahmina BENSONO. Oral care provided.
[2020-09-22 06:47] LABS: BASO % 0.5 % (0.0-2.0); EOS # 0.2 (0.0-0.7); EOS % 3.3 % (0-4.0); GRAN # 4.5 (1.4-6.5); GRAN % 73.9 % (42.2-75.2); LYMPH # 0.7 (1.2-3.4); LYMPH % 10.9 % (20.0-51.0); MEAN CELL VOLUME 104 fl (80.0-100.0); MEAN CORPUSCULAR HGB CONC 32 g/dl (33.0-37.0); MONO # 0.6 (0.1-0.6); MONO % 10.4 % (1.7-9.3); PLATELET COUNT 260 K/mm3 (130-400); RED BLOOD COUNT 2.56 M/mm3 (4.20-5.60); REDCELL DISTRIBUTION WIDTH-CV 14.9 % (11.5-14.5)
[2020-09-22 06:52] LABS: CALCIUM 8.8 mg/dL (8.4-10.2); CREATININE, serum 1.51 (0.66-1.25); HEMATOCRIT 26.5 % (42.0-52.0); HEMOGLOBIN 8.5 g/dl (13.5-18.0); MAGNESIUM 2.1 mg/dL (1.6-2.3); MEAN CORPUSCULAR HEMOGLOBIN 33 pg (27.0-31.0); PHOSPHOROUS 2.8 mg/dL (2.5-4.5)
[2020-09-22 08:25] VITALS: BP 157/64; PULSE 66; TEMP 97.4
[2020-09-22 14:20] VITALS: BP 168/52; PULSE 64; TEMP 97.8
--- NOTE | 2020-09-22 15:17 | NUR ---
Pt. was drowsy for most of the day. Vitals were stable. Pt. tolerated a bed bath, catheter care, and oral care. Pt. was NPO all day and was on a constant TPN drip and tolerated well. Pt. was confused at times but was reoriented to person, place, day. TPN and tubing was changed per facility protocol.
[2020-09-22 15:28] VITALS: BP 162/65; PULSE 60; TEMP 98.7
--- NOTE | 2020-09-22 19:33 | NUR ---
PATIENT RESTED FOR MAJORITY OF THE DAY. WOKE UP INTERMITTENTLY AND PULLED TELE LEADS OFF. PATIENT HAD TO BE REORIENTED MULTIPLE TIMES. TPN RUNNING, ST CONSULT IN AM. AT END OF SHIFT, PATIENT ATTEMPTED TO PULL MUNOZ OUT, AND PULLED OFF TELE LEADS. PATIENT REORIENTED. PATIENT IS RESTING IN BED AT THIS TIME. FALL PERCAUTIONS IN PLACE. CALL LIGHT WITHIN REACH. BEDSIDE SHIFT REPORT GIVEN TO NAINA KATZ.
[2020-09-22 20:02] VITALS: BP 155/48; PULSE 67; TEMP 98.4
--- NOTE | 2020-09-22 20:19 | NUR ---
Patient very aggitated- pulling at lines, calmed patient, assisted to bedpan, readjusted for comfort and pressure offloading, patient had small smear of bowel movement, [place] noted, confusion to situation noted, bed alarm in use, fall precautions in use, patient resting comfortably at this time.
--- NOTE | 2020-09-22 23:05 | NUR ---
Currently resting quietly, CPAP in use for sleep, repositioned for offloading pressure areas, bilateral heel protectors in use, courtney per gravity w/o issue, fall precautions in place, respirations even and unlabored, skin warm and dry. Call marian w/i reach, room close to nurse's station
[2020-09-23] VITALS (8 sets, daily range): BP systolic 126–162; BP diastolic 40–87; PULSE 59–64; TEMP 97.7–98.8
--- NOTE | 2020-09-23 00:10 | NUR ---
Patient pulled PICC line out - site with pressure, no distress noted, patient cleaned up and redressed, pressure dressing applied to PICC site, Sapphire Draper notified.
[2020-09-23 06:23] LABS: CALCIUM 8.7 mg/dL (8.4-10.2); CREATININE, serum 1.4 (0.66-1.25); PHOSPHOROUS 3.2 mg/dL (2.5-4.5); POTASSIUM 4.4 mmol/L (3.4-5.0)
--- NOTE | 2020-09-23 07:00 | NUR ---
Pt in bed resting with eyes closed,, per assistant shift supervisor had rough night so will let sleep at this time.
--- NOTE | 2020-09-23 09:00 | NUR ---
Assessment charted. Pt is awake but more disoriented today than last week. Not able to tell me the date or where he is but does know own . L arm is swollen and red. RYNE PICC site is covered with gauze and is CDI. LFA skin tear covered with gauze and is CDI. Legs are elevated. ORal care provided. IVF to RFA. Alcazar draining dark alberto clear urien to DD in bag at side of bed, meatus has some breakdown and drainage from pt pulling on it intermittently. Will continue to monitor.
--- NOTE | 2020-09-23 10:01 | NUR ---
Treatment team including clinical social work therapist and palliative care met with pt's DPOA-HC today. His mental status had improved some over the weekend but is now decreasing. He pulled his PICC line out last night. Options were discussed by Dr Chambers for placement of feeding tube vs comfort care (hospice). DPOA-HC is very tearful but states that at this point she believes as focus on comfort would be his choice. These is certainly a concern that he would pull out his feeding tube if one was placed. Support provided. Contact will be made by clinical social work therapist to the [facility] and NJ will talk with them in person or by phone regarding placement. Comfort care quilt was provided with explanation.
--- NOTE | 2020-09-23 12:00 | NUR ---
TAKING OVER PATIENT'S CARE. RECEIVED REPORT FROM NAINA MILLER. PATIENT RESTING UP IN BED WITH FRIEND (DPOA). NO NEEDS.
--- NOTE | 2020-09-23 13:40 | NUR ---
Area Development Consultant attended clinical rounds with the team. Patient's DPOA-HC, BREA is at bedside. Hospitalist and Palliative Care RN, Dipika discuss goals of care. Patient pulled his PICC line out overnight. BREA indicated that palliative care may be the best direction for patient. BREA is interested in speaking with the [facility]. ALTAGRACIA contacted Shameka at [facility] and faxed referral. ALTAGRACIA coordinated with Shameka and BREA to set up tour for [facility]. Shameka reviewed referral and believes they should be able to accept pending review from Dr. Baig. Shameka requested copy of DPOA-HC. ALTAGRACIA faxed over. Shameka also advised that patient would need to be changed to DNR before admission. ALTAGRACIA will continue to follow.
--- NOTE | 2020-09-23 15:24 | NUR ---
BREA has returned from hospice house. She is still very tearful and states that hospice house seems to be a nice place but she is still struggling with the question of what has caused this rapid decline. She has been told that he had parkinson like symptoms--and now she is struggling to believe that this is really parkinsons disease. She understands that he cannot swallow safely, that if he doesn't eat and drink--his body will shut down and he will . She is not wanting a big "workup" to find a clear diagnosis "but my heart and hy head do not agree." Support provided.
[2020-09-24 03:50] VITALS: BP 119/87; PULSE 61; TEMP 97.5
[2020-09-24 08:46] VITALS: BP 151/45; PULSE 67; TEMP 98.3
--- NOTE | 2020-09-24 09:12 | NUR ---
Assessment complete. Patient in bed swinging legs out of the bed. Patient stating he needs to go take a shower. PAtient was redirected, repositioned and reoriented. Patient refuses to wear gown at this time courtney is patent, securement device intact. patient is very confused. States he is comfortable now at this time. O2 applied at patient was SOB at rest after attempting to get out of bed. Continuing to monitor closely. Bed alarm is set, all other fall precautions are in place. Call light is in reach.
--- NOTE | 2020-09-24 10:41 | NUR ---
Dr Chambers, Hermila SANCHEZ, and Dipika Mcgregor Rn met with NJ at bedside after her arrival to finalize plan of care. Yesterday she had been struggling with the goals of care discussion but this morning, after talking with Dr Chambers again, she is agreeable to let pt go to the [facility] today. We cannot locate the comfort quilt given to him yesterday and have notified laundry/housekeeping, nursing sales supervisor, and staff to be on the look out for it. A second quilt was provided but does not seem to replace the first one. Support provided throughout the morning to NJ. Pt is talking with her about things from early in his career as though they are happening today.
[2020-09-24] MEDS ORDERED: IPRATROPIUM BROM3 M1 IH (11:05)
[2020-09-24] MEDS ORDERED: ZOFRAN 4MG T4 MG/TAB PO (11:07)
[2020-09-24] MEDS ORDERED: TRANSDERM-0.5 MG/21 TD (11:07)
[2020-09-24] MEDS ORDERED: ATIVAN 1MG T1 MG/TAB PO (11:09)
[2020-09-24] MEDS ORDERED: ROXANOL 20MG20 MG/ML SL (11:09)
[2020-09-24 12:21] VITALS: BP 158/64; PULSE 64; TEMP 98.3
--- NOTE | 2020-09-24 13:12 | NUR ---
Rodent Exterminator attended clinical rounds with the team and patient's DPOA-HC has decided on discharge to [facility]. ALTAGRACIA contacted Shameka at [facility] who advised they can accept patient for an afternoon discharge. Shameka stated 1330 would be a good pickers material handlers time for patient. ALTAGRACIA contacted [facility] and set transport time for 1330. ALTAGRACIA placed completed EMS forms on patient's chart. ALTAGRACIA provided transport time to the team, including DPOA-HC, [place]. ALTAGRACIA faxed negative COVID results, prescriptions and discharge orders to Shameka at [facility]. No additional needs at this time.
--- NOTE | 2020-09-24 13:47 | NUR ---
Patient left the floor at this time. All belongings were taken by family/friend. EMS tranferred patient. No further questions or concerns . Patient plesant and tolerated transfer well.
== END 2020-09-24 13:49 | disposition hospice, inpatient (51) | DRG 56 ==
LOC: COL.ER 10:50 → MEDICAL 17:25 → ICU 09-15 21:13 → MEDICAL 09-15 21:13 → ICU 09-16 13:34 → MEDICAL 09-17 18:12 → ICU 09-17 18:12 → MEDICAL 09-17 19:10
PROVIDERS: Emergency Medicine; Internal Medicine; Internal Medicine Cardiovascular Disease; Physician Assistant; Student in an Organized Health Care Education/Training Program; ADMIT Family Medicine
PROC: 009U3ZX Drainage of Spinal Canal, Percutaneous Approach, Diagnostic (ICD-10-PCS; 2020-09-17)
PROC: 02HV33Z Insertion of Infusion Device into Superior Vena Cava, Percutaneous Approach (ICD-10-PCS; principal; 2020-09-18)
DX: G20 Parkinson's disease (principal); G92 Toxic encephalopathy; G93.41 Metabolic encephalopathy; E43 Unspecified severe protein-calorie malnutrition; I50.33 Acute on chronic diastolic (congestive) heart failure; J96.01 Acute respiratory failure with hypoxia; L03.113 Cellulitis of right upper limb; I13.0 Hypertensive heart and chronic kidney disease with heart failure and stage 1 through stage 4 chronic kidney disease, or unspecified chronic kidney disease; Z66 Do not resuscitate; Z51.5 Encounter for palliative care; E11.22 Type 2 diabetes mellitus with diabetic chronic kidney disease; E03.9 Hypothyroidism, unspecified; D53.9 Nutritional anemia, unspecified; I25.10 Atherosclerotic heart disease of native coronary artery without angina pectoris; F02.80 Dementia in other diseases classified elsewhere, unspecified severity, without behavioral disturbance, psychotic disturbance, mood disturbance, and anxiety; I48.0 Paroxysmal atrial fibrillation; N18.30 Chronic kidney disease, stage 3 unspecified; Z95.0 Presence of cardiac pacemaker; Z20.822 Contact with and (suspected) exposure to COVID-19; Z87.891 Personal history of nicotine dependence; Z68.29 Body mass index [BMI] 29.0-29.9, adult
CPT/HCPCS: 99223-AI; 99232-AI; 99233-AI; 99239; C1751; C1892; J0610; J0696; J1630; J1644; J1815; J1940; J2060; J2543; J3370; J3475; J3480; J7030; J7042; J7050; J7070; J7131